=== PATIENT | female | born 1990 | race Caucasian/White ===

== ENCOUNTER → 2020-10-19 08:47 | Outpatient (CLI) | payer OTHER, SELFPAY ==
[2020-10-19] MEDS: COVID-19 VACC(MODERNA-1)/PF 100 MCG/0.5 ML VIAL IM (08:54)
== END ==
PROVIDERS: Visit Provider Internal Medicine
DX: Z23 Encounter for immunization (principal)
CPT/HCPCS: 0011A; 91301

== ENCOUNTER → 2020-11-15 08:49 | Outpatient (CLI) | payer OTHER, SELFPAY ==
[2020-11-15] MEDS: COVID-19 VACC #2, MRNA(MOD) 100 MCG/0.5 ML VIAL IM (08:52)
== END ==
PROVIDERS: Visit Provider Internal Medicine
DX: Z23 Encounter for immunization (principal)
CPT/HCPCS: 0012A; 91301

== ENCOUNTER → 2021-01-30 17:45 | Outpatient (CLI) | payer OTHER, SELFPAY ==
[2021-01-30 18:13] LABS: Add Manual Diff / Slide Review NO; Basophils Absolute Auto 100 /uL (0-100); Basophils Percent Auto 0.6 % (0-2); Eosinophils Absolute Auto 100 /uL (0-450); Eosinophils Percent Auto 0.7 % (2-4); Hematocrit 44.3 % (36-46); Lymphocytes Absolute Auto 2600 /uL (1100-4500); Lymphocytes Percent Auto 29.4 % (25-40); Mean Corpuscular Hemoglobin 30.2 PG (26-34); Monocytes Absolute Auto 500 /uL (0-900); Neutrophils Absolute Auto 5600 /uL (1500-7000); Neutrophils Percent Auto 63.3 % (50-75); Platelet Count 353 X10^3/uL (150-400); Red Blood Cell Count 4.97 X10^6/uL (4.0-5.2); White Blood Cell Count 8.9 X10^3/uL (4.5-11.0)
[2021-01-30 18:25] LABS: Alanine Aminotransferase 18 IU/L (<35); Albumin 4.2 g/dL (3.5-5.0); Albumin Globulin Ratio 1.6 (1.0-2.8); Alkaline Phosphatase 58 U/L (38-126); Aspartate Aminotransferase 25 IU/L (14-36); BUN Creatinine Ratio 23.8 (6-22); Bilirubin Total 0.3 mg/dL (0.2-1.3); Blood Urea Nitrogen 15 mg/dL (7-17); Calcium 9.9 mg/dL (8.4-10.2); Carbon Dioxide 22 mmol/L (22-32); Chloride 105 mmol/L (98-107); Cholesterol 176 mg/dL (140-199); Estimated Glomerular Filt Rate > 60.0 mL/min (>60); Globulin 2.7 g/dL (1.7-4.1); Glucose 91 mg/dL (70-100); HDL Cholesterol 46 mg/dL (40-60); HEMOLYSIS < 15 (0-50); LDL Cholesterol Calculated 116 mg/dL (<100); Potassium 4.2 mmol/L (3.4-5.1); Sodium 136 mmol/L (137-145); Total Protein 6.9 g/dL (6.3-8.2); Triglycerides 71 mg/dL (35-150)
[2021-01-30 19:42] LABS: Free T4, Direct Thyroxine 1.11 ng/dL (0.78-2.19)
[2021-01-30 19:56] LABS: Thyroid Stimulating Hormone 0.972 uIU/mL (0.47-4.68)
[2021-01-30 19:57] LABS: Creatinine Urine Random 90.8 mg/dL
[2021-01-30 20:40] LABS: Microalbumin Urine Random < 0.6 mg/dL (0-1.6)
== END ==
PROVIDERS: PCP Family Medicine; Referring Provider Family Medicine; Visit Provider Family Medicine
DX: E03.9 Hypothyroidism, unspecified (principal); E11.9 Type 2 diabetes mellitus without complications; Z13.220 Encounter for screening for lipoid disorders; Z13.228 Encounter for screening for other metabolic disorders; Z76.89 Persons encountering health services in other specified circumstances
CPT/HCPCS: 36415; 80053; 80061; 82043; 82570; 83036; 84439; 84443; 85025

== ENCOUNTER → 2021-03-16 16:25 | Outpatient (CLI) | payer OTHER, SELFPAY ==
[2021-03-16 18:07] LABS: Add Manual Diff / Slide Review NO; Basophils Absolute Auto 0 /uL (0-100); Basophils Percent Auto 0.4 % (0-2); Eosinophils Absolute Auto 0 /uL (0-450); Eosinophils Percent Auto 0.3 % (2-4); Hematocrit 42.7 % (36-46); Hemoglobin 14.6 g/dL (12.0-16.0); Lymphocytes Absolute Auto 2000 /uL (1100-4500); Lymphocytes Percent Auto 16.7 % (25-40); Mean Corpuscular HGB Conc 34.1 % (30-36); Mean Corpuscular Hemoglobin 30.4 PG (26-34); Monocytes Absolute Auto 600 /uL (0-900); Monocytes Percent Auto 4.9 % (3-14); Neutrophils Absolute Auto 9200 /uL (1500-7000); Neutrophils Percent Auto 77.7 % (50-75); Platelet Count 359 X10^3/uL (150-400); Red Cell Distribution Width 13.2 % (11.6-14.8); White Blood Cell Count 11.8 X10^3/uL (4.5-11.0)
[2021-03-16 18:13] LABS: Appearance Urine UA CLEAR; Bilirubin Urine UA NEGATIVE (NEGATIVE); Color Urine UA YELLOW; Glucose Urine UA NEGATIVE (Negative); Ketones Urine UA NEGATIVE (NEGATIVE); Leukocyte Esterase Urine UA NEGATIVE (NEGATIVE); Nitrite Urine UA NEGATIVE (Negative); Occult Blood Urine UA NEGATIVE (Negative); Protein Urine UA NEGATIVE (Negative); Specific Gravity Urine UA <=1.005 (1.000-1.035); Urobilinogen Urine UA 0.2 E.U./dL (0.2)
[2021-03-16 18:20] LABS: pH Urine UA 6.5 (4.5-8.0)
[2021-03-16 20:39] LABS: Urine Chlamydia NOT DETECTED; Urine N gonorrhoeae NOT DETECTED
[2021-03-17 04:05] LABS: Hepatitis B Surface Antigen NEGATIVE s/c (NEGATIVE); Rubella Antibody IgG 31.8 IU/mL (>15)
[2021-03-17 04:18] LABS: HIV 1 & 2 Ab/Ag 4th Gen Combo NEGATIVE (NEGATIVE); Hep C Virus Ab w/Reflex Quant NEGATIVE s/c (NEGATIVE)
[2021-03-17 13:48] LABS: RPR Screen Non Reactive (Non Reactive); Varicella IgG Antibody 819 index (Immune >165)
== END ==
PROVIDERS: PCP Family Medicine; Referring Provider Specialist; Visit Provider Specialist
DX: Z34.81 Encounter for supervision of other normal pregnancy, first trimester (principal); Z3A.08 8 weeks gestation of pregnancy
CPT/HCPCS: 36415; 80055; 81003; 86787; 86803; 86850; 86900; 86901; 87086; 87389; 87491; 87591

== ENCOUNTER 2021-05-01 17:14 | Emergency (ER) | payer OTHER, SELFPAY ==
[2021-05-01 18:04] VITALS: BP 141/93; PULSE 99; RESP 16; TEMP 37.1; O2SAT 97; BMI 34.4
--- NOTE | 2021-05-01 18:11 | DI.US.S_ITS ---
PROCEDURE: US OB LIMITED INDICATIONS: PELVIC PAIN AND CRAMPING OUTSIDE/PRIOR DATING DATA: First dating scan (date and location): May 01, 2021 . Estimated date of delivery (JUSTIN) from first dating scan: October 13, 2021 . TECHNIQUE: Real-time scanning was performed of the fetus, with image documentation and biometric measurements. Endovaginal scanning: Not performed COMPARISON: None. FINDINGS: General: A single living intrauterine gestation is present. Presentation: Breech. Placenta: Placental position is posterior , without previa. Amniotic fluid index: 13.1 cm, normal range is 5-24 cm. heart rate: 152 beats per minute. Maternal cervical canal: 3.8 cm long. Normal lower limit is 2.5 cm. Probable anterior uterine contraction. Right ovary not well seen. Likely resolving corpus luteal cyst on the left measuring up to 2.9 cm in size. biometrics: Biparietal diameter: 3.4 cm, correlating with 16 weeks and 3 days Head circumference: 12.7 cm, correlating with 16 weeks and 3 days Abdominal circumference: 11.3 cm, correlating with 17 weeks and 1 day. Femur length: 2.0 cm, correlating with 15 weeks and 6 days Estimated gestational age from initial scan: not applicable. Composite gestational age from present scan: 16 weeks and 3 days Estimated weight and percentile: 159 g. Percentile not calculated. Measurement variability for biometric dating: +/- 7 days from 14 weeks to 15 weeks 6 days gestation, +/- 10 days from 16 weeks to 21 weeks 6 days gestation, +/- 2 weeks from 22 weeks to 27 weeks 6 days gestation, +/- 3 weeks for 28 weeks gestation or later. weight reference: 4500 g or EFW >90/95% is considered macrosomia or large for gestational age. EFW <10% is small for gestational age. EFW 5% or less is considered intra-uterine growth restriction. Other: No evidence for perigestational hemorrhage. IMPRESSION: 1. Single living intrauterine gestation with estimated sonographic gestational age of approximately 16 weeks and 3 days. 2. Probable anterior uterine contraction. Follow-up recommended to document resolution. 3. Likely resolving left corpus luteal cyst measuring 2.9 cm in size. Dictated by: Prem Gayle M.D. on 05/01/2021 at 20:15 Approved by: Prem Gayle M.D. on 05/01/2021 at 20:24
[2021-05-01 18:34] LABS: Appearance Urine UA CLEAR; Bilirubin Urine UA NEGATIVE (NEGATIVE); Color Urine UA YELLOW; Glucose Urine UA NEGATIVE (Negative); Ketones Urine UA NEGATIVE (NEGATIVE); Leukocyte Esterase Urine UA NEGATIVE (NEGATIVE); Nitrite Urine UA NEGATIVE (Negative); Occult Blood Urine UA NEGATIVE (Negative); Protein Urine UA NEGATIVE (Negative); Specific Gravity Urine UA 1.015 (1.000-1.035)
[2021-05-01 18:41] LABS: pH Urine UA 6.5 (4.5-8.0)
[2021-05-01 18:45] LABS: Bacteria Urine Few (2-10); Calcium Oxalate Crystals Urine Few; Culture Indicated Urine Cult Not Indicated; RBC Urine 0-1/HPF (0-5/HPF); Squamous Epithelial Cell Urine 5-10 /HPF (0-5/HPF); WBC Urine 0-1/HPF (0-5/HPF)
--- NOTE | 2021-05-01 19:18 | ED_ITS ---
HPI - General Chief complaint: OB/Uterine Contractions Stated complaint: 16 WKS INTENSE PELVIC PAIN PRESSURE Time Seen by Provider: 05/01/21 19:17 History of Present Illness HPI Narrative: This is a female at 16 weeks who comes with complaint of pressure in her lower pelvis. Patient states feels similar to what she had later in her but she is also having pain. Patient states it has been going on for the past week but has become more intense and frequent and prolonged. Patient denies any fevers or chills. No nausea or vomiting. She denies any issues with bowel movements. She has had normal stools with no black or bloody stools. She has had normal urination with no dysuria, frequency or sense of urgency. She has had bilateral lower back pain as well. Patient notes may be slightly worse on the right. Patient states she is currently on m etformin for potential diabetes or gestational diabetes. She states this was started preemptively. Patient is also on levothyroxine for hypothyroidism. She states she has had uneventful pregnancies in the past. She had C-sections for her 3 prior deliveries. She follows with Dr. Sun for her care. She does note that she did have a kidney infection with her past . Related Data Home Medications Medication Instructions Recorded Confirmed levothyroxine 25 mcg tablet 25 mcg PO tab 01/30/21 04/13/21 metformin 750 mg tablet,extended mg PO 01/30/21 04/13/21 release 24 hr prenat.vits,nery,ggr-cwji-xedpb 1 tab PO DAILY 03/07/21 04/13/21 Previous Rx's Medication Instructions Recorded clindamycin phosphate 1 % lotion 1 applic TOPICAL BID #60 ml 01/30/21 (Cleocin T) Allergies Allergy/AdvReac Type Severity Reaction Status Date / Time No Known Drug Allergies Allergy Verified 03/07/21 14:08 Review of Systems Review of Systems ROS Unobtainable: All systems reviewed & are unremarkable except as noted in HPI and below Exam Narrative Exam Narrative: GENERAL: Alert and oriented x three, female in mild distress. HEENT: Head normocephalic, atraumatic, EOMI, pupils reactive, face symmetric, moist mucous membranes NECK: Supple, full range of motion CARDIOVASCULAR: Regular rate and rhythm without murmurs, rubs or gallops. RESPIRATORY: Breath sounds equal bilaterally, no wheezes rales or rhonchi. ABDOMEN: Soft, generalized lower abdominal tenderness. Normoactive bowel sounds all 4 quadrants. No guarding or rebound, rigidity, no mass, gravid. : Bilateral right greater than left CVA tenderness EXTREMITIES: Normal range of motion, no clubbing or edema. Neurovascularly intact NEUROLOGICAL: Cranial nerves II through XII grossly intact. Moving all ex tremities SKIN: Warm, dry, no petechiae, no rashes or lesions. Initial Vital Signs Initial Vital Signs: Vital Signs Temperature 98.7 F 05/01/21 18:04 Pulse Rate 99 H 05/01/21 18:04 Respiratory Rate 16 05/01/21 18:04 Blood Pressure 141/93 H 05/01/21 18:04 Pulse Oximetry 97 05/01/21 18:04 Course Orders Ordered: Discontinued Medications Acetaminophen (Acetaminophen 325 Mg Tablet) 975 mg PO NOW ONE Stop: 05/01/21 19:27 Last Admin: 05/01/21 19:31 Dose: 975 mg Documented by: KOBY Sodium Chloride (Normal Saline 0.9%) 1,000 mls @ 1,000 mls/hr IV BOLUS ONE Stop: 05/01/21 20:29 Last Infusion: 05/01/21 21:11 Dose: 0 mls/hr Documented by: Admin: 05/01/21 20:05 Dose: 1,000 mls/hr Documented by: KOBY Reevaluation(s) Reevaluation #1: Recheck, patient has had some improvement. Her pain is not as intense but is still present. She still continues to have pressure present. Patient blood pressure also improved here in the department is 123/76 on repeat. Labs show a mild leukocytosis, hemoglobin and platelets are appropriate, sodium is 135 with normal renal function and LFTs. Patients urine is negative for infection. Ultrasound shows single living intrauterine gestation consistent with dates, possible anterior uterine contraction and likely resolving left corpus luteal cyst measuring 2.9 cm. It is also noted the patient's cervical canal is 2.8 cm long with a normal lower limit of 2.5 cm. No signs of hemorrhage or chorionic bleed. And heartbeat is 152. Discussed with patient fall of her findings from this evening. She can continue with Tylenol was concurred to continue to hydrate and was given work. Patient and I discussed return precautions and to touch base with her provider, she has an appointment follow-up on 05/11 but may wish to have sooner follow-up with continued symptoms. Consultations Consultation #1: Dr. Roper, reviewed patient's ultrasound findings, examine labs. She states ultrasound is not definitive in terms of contractions. This is a possibility. Also discussed that other can be some scarring from her uterus. Vital Signs Vital signs: Vital Signs - 8 hr 05/01/21 22:33 Temperature 97.8 F Pulse Rate 91 H Respiratory Rate 18 Blood Pressure 123/76 Pulse Oximetry 99 MDM - OB/Uterine Contractions Lab Data Result diagrams: 05/01/21 20:14 05/01/21 20:14 Labs: Lab Results 05/01/21 05/01/21 05/01/21 Range/Units 18:10 20:14 20:14 WBC 13.0 H (4.5-11.0) X10^3/uL RBC 4.72 (4.0-5.2) X10^6/uL Hgb 14.4 (12.0-16.0) g/dL Hct 42.4 (36-46) % MCV 89.9 (80-100) fL MCH 30.4 (26-34) PG MCHC 33.9 (30-36) % RDW 13.5 (11.6-14.8) % Plt Count 309 (150-400) X10^3/uL Neut % (Auto) 76.7 H (50-75) % Lymph % (Auto) 16.7 L (25-40) % [place] % (Auto) 5.7 (3-14) % Eos % (Auto) 0.5 L (2-4) % Baso % (Auto) 0.4 (0-2) % Neut # (Auto) 9900 H (3570-2651) /uL Lymph # (Auto) 2200 (3628-0393) /uL [place] # (Auto) 700 (0-900) /uL Eos # (Auto) 100 (0-450) /uL Baso # (Auto) 0 (0-100) /uL Sodium 135 L (137-145) mmol/L Potassium 4.0 (3.4-5.1) mmol/L Chloride 106 (98-107) mmol/L Carbon Dioxide 23 (22-32) mmol/L BUN 11 (7-17) mg/dL Creatinine 0.47 L (0.52-1.04) mg/dL Estimated GFR > 60.0 (>60) mL/min BUN/Creatinine Ratio 23.4 H (6-22) Glucose 78 (70-100) mg/dL Calcium 8.6 (8.4-10.2) mg/dL Total Bilirubin 0.2 (0.2-1.3) mg/dL AST 19 (14-36) IU/L ALT 11 (<35) IU/L Alkaline Phosphatase 51 (38-126) U/L Total Protein 6.3 (6.3-8.2) g/dL Albumin 3.4 L (3.5-5.0) g/dL Globulin 2.9 (1.7-4.1) g/dL Albumin/Globulin Ratio 1.2 (1.0-2.8) Lipase 227 (23-300) U/L Urine Color Yellow Urine Appearance Clear Urine pH 6.5 (4.5-8.0) Ur Specific [place] 1.015 (1.000-1.035) Urine Protein Negative (Negative) Urine Glucose (UA) Negative (Negative) g/dL Urine Ketones Negative (NEGATIVE) Urine Occult Blood Negative (Negative) Urine Nitrate Negative (Negative) Urine Bilirubin Negative (NEGATIVE) Urine Urobilinogen 1.0 (0.2) E.U./dL Ur Leukocyte Esterase Negative (NEGATIVE) Urine RBC 0-1/hpf (0-5/HPF) Urine WBC 0-1/hpf (0-5/HPF) Ur Squamous Epith Cells 5-10 /hpf H (0-5/HPF) Calcium Oxalate Crystal Few H Urine Bacteria Few (2-10) H (None) Ur Culture Indicated? Cult not indicated Imaging Data US - OB: Radiologist's Impression: [address] [id number] ReportSigned Patient: Cr Rapp LMR#: [id number]: [id number]:[id number]/Sex: 30 / FDate of Service: 05/01/21Loc: EDAccession Number: [id number] Procedure: US OB limited Ordering Provider: Rosa Butterfield D.O. PROCEDURE: US OB LIMITED INDICATIONS: PELVIC PAIN AND CRAMPING OUTSIDE/PRIOR DATING DATA: First dating scan (date and location): May 01, 2021 . Estimated date of delivery (JUSTIN) from first dating scan: October 13, 2021 . TECHNIQUE: Real-time scanning was performed of the fetus, with image documentation and biometric measurements. Endovaginal scanning: Not performed COMPARISON: None. FINDINGS: General: A single living intrauterine gestation is present. Presentation: Breech. Placenta: Placental position is posterior , without previa. Amniotic fluid index: 13.1 cm, normal range is 5-24 cm. heart rate: 152 beats per minute. Maternal cervical canal: 3.8 cm long. Normal lower limit is 2.5 cm. Probable anterior uterine contraction. Right ovary not well seen. Likely resolving corpus luteal cyst on the left measuring up to 2.9 cm in size. biometrics: Biparietal diameter: 3.4 cm, correlating with 16 weeks and 3 days Head circumference: 12.7 cm, correlating with 16 weeks and 3 days Abdominal circumference: 11.3 cm, correlating with 17 weeks and 1 day. Femur length: 2.0 cm, correlating with 15 weeks and 6 days Estimated gestational age from initial scan: not applicable. Composite gestational age from present scan: 16 weeks and 3 days Estimated weight and percentile: 159 g. Percentile not calculated. Measurement variability for biometric dating: +/- 7 days from 14 weeks to 15 weeks 6 days gestation, +/- 10 days from 16 weeks to 21 weeks 6 days gestation, +/- 2 weeks from 22 weeks to 27 weeks 6 days gestation, +/- 3 weeks for 28 weeks gestation or later. weight reference: 4500 g or EFW >90/95% is considered macrosomia or large for gestational age. EFW <10% is small for gestational age. EFW 5% or less is considered intra-uterine growth restriction. Other: No evidence for perigestational hemorrhage. IMPRESSION: 1. Single living intrauterine gestation with estimated sonographic gestational age of approximately 16 weeks and 3 days. 2. Probable anterior uterine contraction. Follow-up recommended to document re solution. 3. Likely resolving left corpus luteal cyst measuring 2.9 cm in size. Dictated by: Prem Gayle M.D. on 05/01/2021 at 20:15 Approved by: Prem Gayle M.D. on 05/01/2021 at 20:24 MDM Narrative Medical decision making narrative: 30-year-old female with pelvic pain present. Labs are reassuring, patient's pelvic ultrasound shows possible contraction and patient's descriptions of her symptoms actually sound somewhat consistent with this. Patient's cervical canal is 3.8 cm long. She did have some improvement w ith Tylenol and fluids but not resolution. Patient's urine is not suspicious for infection at this time. Patient was encouraged to return if worsening symptoms for additional evaluation. On abdominal exam she does not appear to have acute abdomen and exam do not seem consistent with an appendicitis or serious intrabdominal infection. Discharge Plan Departure Patient Disposition: Home Clinical Impression: Pelvic pain affecting Instructions: DI for Abdominal Pain -- Early Activity Restrictions/Additional Instructions: Follow up with your pump tester this week. Call tomorrow for an appointment and discuss options. You may continue with Tylenol up to a 1000 mg every 8 hours to see if this helps your symptoms. Continue to hydrate. Return for worsening symptoms, fevers greater 100.4 F, new chest pain or shortness of breath, persistent vomiting, or bloody stools, difficulty with urination, painful, frequent or other urinary symptoms, vaginal bleeding or fluid leakage or other new or concerning symptoms. Prescriptions: No Action metformin 750 mg tablet extended release 24 hr PO RF: 0 levothyroxine 25 mcg tablet 25 mcg PO RF: 0 clindamycin phosphate [Cleocin T] 1 % lotion 1 applic topical BID Qty: 60 RF: 1 prenat.vits,nery,aau-mtrm-fcgnu Tablet 1 tab PO DAILY RF: 0 Referrals: eKlli Roper MD [Physician] - Mendel Urbina DO [Primary Care Provider] - Stand Alone Forms: Work Release Note
[2021-05-01] MEDS: ACETAMINOPHEN 325 MG TABLET 975 MG PO (19:31)
[2021-05-01 19:38] VITALS: BP 123/74; PULSE 91; RESP 18; TEMP 36.5; O2SAT 97
[2021-05-01] MEDS: SODIUM CHLORIDE 0.9% 1,000 ML 1000 ML IV (20:05)
[2021-05-01 20:20] LABS: Add Manual Diff / Slide Review NO; Basophils Absolute Auto 0 /uL (0-100); Basophils Percent Auto 0.4 % (0-2); Eosinophils Absolute Auto 100 /uL (0-450); Eosinophils Percent Auto 0.5 % (2-4); Hematocrit 42.4 % (36-46); Hemoglobin 14.4 g/dL (12.0-16.0); Lymphocytes Absolute Auto 2200 /uL (1100-4500); Lymphocytes Percent Auto 16.7 % (25-40); Mean Corpuscular HGB Conc 33.9 % (30-36); Mean Corpuscular Hemoglobin 30.4 PG (26-34); Mean Corpuscular Volume 89.9 fL (80-100); Monocytes Absolute Auto 700 /uL (0-900); Monocytes Percent Auto 5.7 % (3-14); Neutrophils Absolute Auto 9900 /uL (1500-7000); Neutrophils Percent Auto 76.7 % (50-75); Platelet Count 309 X10^3/uL (150-400); Red Blood Cell Count 4.72 X10^6/uL (4.0-5.2); Red Cell Distribution Width 13.5 % (11.6-14.8)
--- NOTE | 2021-05-01 20:36 | PC.NURSE ---
Patient endorses vaginal pressure/pain since Saturday. Denies having problems like this with previous pregnancies.
[2021-05-01 20:38] LABS: Alanine Aminotransferase 11 IU/L (<35); Albumin 3.4 g/dL (3.5-5.0); Albumin Globulin Ratio 1.2 (1.0-2.8); Alkaline Phosphatase 51 U/L (38-126); Aspartate Aminotransferase 19 IU/L (14-36); BUN Creatinine Ratio 23.4 (6-22); Bilirubin Total 0.2 mg/dL (0.2-1.3); Blood Urea Nitrogen 11 mg/dL (7-17); Calcium 8.6 mg/dL (8.4-10.2); Carbon Dioxide 23 mmol/L (22-32); Chloride 106 mmol/L (98-107); Estimated Glomerular Filt Rate > 60.0 mL/min (>60); Globulin 2.9 g/dL (1.7-4.1); Glucose 78 mg/dL (70-100); HEMOLYSIS < 15 (0-50); Lipase 227 U/L (23-300); Sodium 135 mmol/L (137-145); Total Protein 6.3 g/dL (6.3-8.2)
[2021-05-01 22:33] VITALS: BP 123/76; PULSE 91; RESP 18; TEMP 36.6; O2SAT 99
== END 2021-05-01 22:35 | disposition home or self-care (01) ==
PROVIDERS: Emergency Provider Emergency Medicine; PCP Family Medicine
DX: O26.892 Other specified pregnancy related conditions, second trimester (principal); R10.2 Pelvic and perineal pain; Z3A.14 14 weeks gestation of pregnancy
CPT/HCPCS: 36415; 76815; 80053; 81001; 83690; 85025; 96360; 99284

== ENCOUNTER → 2021-05-11 17:15 | Outpatient (CLI) | payer OTHER, SELFPAY ==
[2021-05-16 20:58] LABS: AFP, Serum 40.2 ng/mL (.); Calc Gestational Age Ultrasound (.); Estriol, Free 1.23 ng/mL (.); Inhibin A, Dimeric 162.28 pg/mL (.); Inhibin A, MoM 1.21 (.); Maternal Ethnicity Caucasian (.); Maternal Weight 193 lbs (.); Number of Fetuses No (.); OSBR Risk 1 IN 8933 (.); Results Report (.); Test Results *Screen Negative* (.); hCG, MoM 2.15 (.); hCG, Serum 53189 mIU/mL (.)
== END ==
PROVIDERS: PCP Family Medicine; Referring Provider Specialist; Visit Provider Specialist
DX: Z34.82 Encounter for supervision of other normal pregnancy, second trimester (principal); Z3A.17 17 weeks gestation of pregnancy
CPT/HCPCS: 36415; 82105; 82677; 84702; 86336

== ENCOUNTER → 2021-05-29 14:03 | Outpatient (CLI) | payer OTHER, SELFPAY ==
--- NOTE | 2021-05-29 14:04 | DI.US.S_ITS ---
PROCEDURE: US OB >= 14 WEEKS FETUS INDICATIONS: ANATOMY OUTSIDE/PRIOR DATING DATA: Last menstrual period (LMP): Unknown . LMP-based estimated date of delivery (JUSTIN): Not applicable . First dating scan (date and location): 05/01/2021 . Estimated date of delivery (JUSTIN) from first dating scan: 10/13/2021 . TECHNIQUE: Real-time scanning was performed of the fetus, with image documentation and biometric measurements. Endovaginal scanning: Not performed COMPARISON: None. FINDINGS: General: A single living intrauterine gestation is present. Placenta: Placental position is posterior , without previa. Lower placental edge 2 cm or less from internal cervical os qualifies as low lying placenta. Amniotic fluid index: 12.9 cm, normal range is 5-24 cm. heart rate: 155 beats per minute. Maternal cervical canal: 3.9 cm long. Normal lower limit is 2.5 cm. Report any funneling of internal cervical os: % of canal length, shape (U or V), width or any U-shaped funneling. biometrics: Biparietal diameter: 49 mm; 20 weeks 5 days Head circumference: 186 mm; 20 weeks 6 days Abdominal circumference: 158 mm; 20 weeks 6 days Femur length: 30 mm; 19 weeks 3 days Estimated gestational age from initial scan: 20 weeks 3 days Composite gestational age from present scan: 20 weeks 3 days Estimated weight and percentile: 344 g, which is at the 37th percentile for gestational age Measurement variability for biometric dating: +/- 7 days from 14 weeks to 15 weeks 6 days gestation, +/- 10 days from 16 weeks to 21 weeks 6 days gestation, +/- 2 weeks from 22 weeks to 27 weeks 6 days gestation, +/- 3 weeks for 28 weeks gestation or later. weight reference: 4500 g or EFW >90/95% is considered macrosomia or large for gestational age. EFW <10% is small for gestational age. EFW 5% or less is considered intra-uterine growth restriction. Anatomic survey: Neuro: Ventricles are non-dilated at less than 10 mm. Cisterna magna is normal at 3-11 mm. Cerebellum is normal in size and morphology. Nuchal skin fold: Normal at less than 6 mm between 14-21 weeks gestational age. Face: Nose and lips, facial profile are normal. Spine: No evidence for spina bifida. Heart: Not well seen Diaphragm: Not well seen Stomach: Left-sided stomach is present. Kidneys: No hydronephrosis. Normal is less than 5 mm in 2nd trimester, less than 7 mm in 3rd trimester. Cord: 3-vessel cord has orthotopic insertion. Bladder: Normal in size. Extremities: All 4 extremities identified. IMPRESSION: 1. Single living intrauterine gestation. 2. Limited evaluation of the heart and diaphragm. 3. Appropriate interval growth. Dictated by: Monalisa Underwood M.D. on 05/30/2021 at 15:20 Approved by: Monalisa Underwood M.D. on 05/30/2021 at 15:23
== END ==
PROVIDERS: PCP Family Medicine; Referring Provider Specialist; Visit Provider Specialist
DX: Z34.82 Encounter for supervision of other normal pregnancy, second trimester (principal); Z3A.20 20 weeks gestation of pregnancy
CPT/HCPCS: 76811

== ENCOUNTER → 2021-06-20 12:05 | Outpatient (CLI) | payer OTHER, SELFPAY ==
--- NOTE | 2021-06-20 12:06 | DI.US.S_ITS ---
PROCEDURE: US OB FOLLOW UP INDICATIONS: FOLLOW UP FROM [facility] OUTSIDE/PRIOR DATING DATA: Last menstrual period (LMP): Unknown . LMP-based estimated date of delivery (JUSTIN): Unknown . First dating scan (date and location): 05/01/2021 . Estimated date of delivery (JUSTIN) from first dating scan: 10/13/2021 . TECHNIQUE: Real-time scanning was performed of the fetus, with image documentation. COMPARISON: Merged with [facility], OB >= 14 WEEKS FETUS, 05/29/2021, 14:14. Merged with [facility], OB LIMITED, 05/01/2021, 18:55. [facility], OB <= 14 WEEKS FETUS, 04/13/2021, 16:32. FINDINGS: A single living intrauterine gestation is present. Presentation: Vertex Placenta: Placental position is posterior without previa. Amniotic fluid index: 15.1 cm, normal range is 5-24 cm. heart rate: 139 beats per minute. Maternal cervical canal: 3.9 cm long. Normal lower limit is 2.5 cm. Estimated gestational age from initial scan: 23 weeks 4 days Miscellaneous: Heart and diaphragm appear within normal limits. . IMPRESSION: 1. Single live intrauterine . 2. Heart and diaphragm are within normal limits. Dictated by: Cee Meier M.D. on 06/20/2021 at 17:55 Approved by: Cee Meier M.D. on 06/20/2021 at 17:56
== END ==
PROVIDERS: PCP Family Medicine; Referring Provider Specialist; Visit Provider Specialist
DX: Z36.2 Encounter for other antenatal screening follow-up (principal); Z3A.23 23 weeks gestation of pregnancy
CPT/HCPCS: 76816

== ENCOUNTER → 2021-07-14 09:30 | Outpatient (CLI) | payer OTHER, SELFPAY ==
[2021-07-14 11:49] LABS: Hematocrit 38.7 % (36-46)
[2021-07-14 11:50] LABS: GTT (PREG) 1 Hour PP 50gm Dose 152 mg/dL (76-139)
== END ==
PROVIDERS: PCP Family Medicine; Referring Provider Specialist; Visit Provider Specialist
DX: Z34.82 Encounter for supervision of other normal pregnancy, second trimester (principal); Z3A.25 25 weeks gestation of pregnancy
CPT/HCPCS: 36415; 82950; 85014; 85018

== ENCOUNTER → 2021-07-24 08:56 | Outpatient (CLI) | payer OTHER, SELFPAY ==
[2021-07-24 09:42] LABS: Glucose Fasting Gestational 86 mg/dL (76-95)
[2021-07-24 11:18] LABS: Glucose 1 Hour Gest 181 mg/dL (76-180)
[2021-07-24 12:21] LABS: Glucose Tol Interp,Gestational INTERPRETATION
[2021-07-24 13:08] LABS: Glucose 3 Hour Gest 152 mg/dL (76-140)
[2021-07-24 18:19] LABS: Glucose 2 Hour Gest 158 mg/dL (76-155)
== END ==
PROVIDERS: PCP Family Medicine; Referring Provider Specialist; Visit Provider Specialist
DX: Z34.82 Encounter for supervision of other normal pregnancy, second trimester (principal); R73.09 Other abnormal glucose; Z3A.28 28 weeks gestation of pregnancy
CPT/HCPCS: 36415; 82951; 82952

== ENCOUNTER 2021-09-01 13:00 | Outpatient (RCR) | payer OTHER, SELFPAY ==
--- NOTE | 2021-06-26 15:44 | PT.OIE ---
Current Diagnoses Other specified related conditions, unspecified trimester (06/26/21) Pelvic and perineal pain (06/26/21) 18 weeks gestation of (06/26/21) Past Medical History (Last Updated 03/07/21 @ 15:39 by Misty Velazquez RN) Abnormal Pap smear of cervix (~05/2019) Acne rosacea (~2019) Borderline hypertension (~2018) Diabetes mellitus (~2018) History of being hospitalized (~12/2007) History of primary section (~04/16/07) Hypothyroidism (~2018) Irregular menstrual cycle (~2015) Ovarian cyst (~2018) PCOS (polycystic ovarian syndrome) Pre-diabetes PTSD (post-traumatic stress disorder) SAB (spontaneous ) (~01/2005) Status post repeat low transverse section (~03/31/08) Status post repeat low transverse section (~08/07/13) Past Surgical History (This Medical Record has been edited. Action required.) History of primary section (~04/16/07) Status post repeat low transverse section (~03/31/08) Status post repeat low transverse section (~08/07/13) Visit Care Team Role Provider Type Mendel Urbina DO Primary Care Provider Physician Specialty: Family Practice Address: [address] [place] [address] Email: [email or web address] Sun MD Attending Provider Physician Referring Provider Specialty: CORRECTIVE THERAPY AIDE Address: [address] [place] [address], [address] Email: [email or web address] Initial Evaluation PT-OP-A Visit Information Start: 06/26/21 08:34 Freq: Status: Active Protocol: Document 06/26/21 13:45 AMB (Rec: 06/27/21 11:01 AMB [email or web address]) Out-Patient Physical Therapy Visit Information Visit Information Visit Type Initial Evaluation Visit Start Time 13:45 Visit Stop Time 14:30 Total Visit Minutes 45 Visit Number 1 PT-OP-B Current Condition Start: 06/26/21 08:34 Freq: Status: Active Protocol: Document 06/26/21 13:45 AMB (Rec: 06/27/21 12:01 AMB [email or web address]) Current Condition History of Current Condition Onset Date a few months ago Current Complaints bilateral sciatica, pubic symphysis pain History of Current Condition This is Cr's 4th . 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 She is having pain with walking, lifting, really any activity. She tried a band and didn't notice a lot of difference. She has difficulty with lying on her sides, but can't lie on her back and does have pain rolling over. The left seems to be worse. Sitting increases sciatica pain. Pubic symphysis pain seems to be better since going on light duty, but sciatica is not and is staying the same. Due October 14. Prior Functional Status Baseline Function- ADL's Independent Baseline Function- Mobility Independent Current Functional Impairments (Reported) Functional Limitations- ADL's Light duty at work Personal Factors Other Personal Factors That May Effect , hx multiple C- Therapy/Recovery section PT-OP-C Subjective Start: 06/26/21 08:34 Freq: Status: Active Protocol: Document 06/26/21 13:45 AMB (Rec: 06/27/21 13:44 AMB [email or web address]) Patient Questionnaires Pelvic Pain and Urgency/Frequency Patient Symptom Scale Pelvic Pain Score 6 OP-PT Pain Assessment Comments Pain Comments Varies between 5-8, low back and posterior hips down to about mid calf PT-OP-F Manual Assessment Start: 06/26/21 08:34 Freq: Status: Active Protocol: Document 06/26/21 13:45 AMB (Rec: 06/27/21 13:44 AMB [email or web address]) Manual Assessments Other Manual Assessments Other Manual Assessments Significant tenderness over gluteal muscle L>R, tender to even light touch. Less tender at lumbar spine. PT-OP-J Posture/Palpation/Skin Start: 06/26/21 08:34 Freq: Status: Active Protocol: Document 06/26/21 13:45 AMB (Rec: 06/27/21 13:44 AMB [email or web address]) Posture Evaluation Comments Posture Comments Increased lumbar lordosis. PT-OP-K Range of Motion Start: 06/26/21 08:34 Freq: Status: Active Protocol: Document 06/26/21 13:45 AMB (Rec: 06/27/21 13:44 AMB [email or web address]) Lumbar Spine Range of Motion Lumbar Spine Active Degrees Testing Position Standing Flexion 20 Extension 5 Lateral Flexion Left 20 Lateral Flexion Right 20 ROM Limitations Pain PT-OP-M Strength Start: 06/26/21 08:34 Freq: Status: Active Protocol: Document 06/26/21 13:45 AMB (Rec: 06/27/21 13:44 AMB [email or web address]) Hip Strength Hip Manual Muscle Testing Left Flexion (L2) 4+ Good+ Extension (S1) 4 Good Abduction 4 Good Right Flexion (L2) 4+ Good+ Extension (S1) 4 Good Abduction 4 Good Ankle/Foot Strength Ankle and Foot Manual Muscle Testing Right Dorsiflexion (L4) 5 Normal Plantarflexion (S1) 5 Normal Left Dorsiflexion (L4) 4 Good Plantarflexion (S1) 4- Good- PT-OP-Q Treatments Start: 06/26/21 08:34 Freq: Status: Active Protocol: Document 06/26/21 13:45 AMB (Rec: 06/27/21 13:44 AMB [email or web address]) Therapeutic Exercises Sitting Exercises 1 Sitting Exercise Name seated sciatic glide Reps/Minutes 3 Other Exercises 1 Other Exercise Name quadruped TA Reps/Minutes 10 PT-OP-T Assessment and Plan Start: 06/26/21 08:34 Freq: Status: Active Protocol: Document 06/26/21 13:45 AMB (Rec: 06/27/21 13:44 AMB [email or web address]) Physical Therapy Assessment Rehab Potential Rehabilitation Potential Fair Evaluation Complexity Number of Personal Factors/Comorbidities 1-2 Number of Body Systems Impaired 4 or More Clinical Presentation at Evaluation Evolving Impairments Impairments Pain,Posture,ROM,Strength Goals Three Impairment mobility Short Term Goal (STG) Kjrstie will roll over in bed with 5/10 pain or less. STG Duration 4 weeks Mcfp Goal (LTG) Kjrstie will be independent and consistent with a HEP to help stablize her core and pelvis. LTG Duration 8 weeks Two Impairment pain Short Term Goal (STG) Kjrstie will lift 15 pounds from floor to waist height with good body mechanics and 5 /10 pain or less. STG Duration 4 weeks Alteration Hand Goal (LTG) Kjrstie will walk for 30 minutes with 5/10 pain or less . One Impairment ROM Short Term Goal (STG) Kjrstie will improve her lumbar flexion AROM to 30 degrees. STG Duration 4 weeks Assessment Summary Assessment Cr attends physical therapy with significant L>R hip pain that radiates into her calves and left sided ankle weakness. She will benefit from core stabilization, body mechanics training. We will need to be very aware of her positioning, as lying supine and sitting are not well tolerated due to pain. Pubic symphysis pain is present but not the patient's main concern at this time. Given her progressing prengnacy and active job her potential is fair. Physical Therapy Plan Frequency and Duration Frequency of Treatment 2x/Week Duration of Treatment 8 weeks Plan of Care Start Date 06/26/21 Plan of Care End Date 08/21/21 Therapeutic Interventions Therapeutic Interventions Gait Training,Home Exercise Program,Joint Mobilizations, Manual Therapy,Neuromuscular Re-education,Self-Care/Home Management,Soft Tissue Mobilization,Therapeutic Activities,Therapeutic Exercises Modalities Cold Pack/Ice Massage,Hot Packs Next Visit Focus/Plan Next Note Type Treatment Note Next Visit Plan HEP: core stabilization in quadruped or on ball. Manual therapy with pillow.
--- NOTE | 2021-06-26 15:46 | PT.OPPOC ---
Physical, Occupational & Speech Therapy At [facility] Current Diagnoses Other specified related conditions, unspecified trimester (06/26/21) Pelvic and perineal pain (06/26/21) 18 weeks gestation of (06/26/21) Visit Care Team Role Provider Type Mendel Urbina DO Primary Care Provider Physician Specialty: Family Practice Address: [address] [place] [address], [address] Email: [email or web address] Sue Sun MD Attending Provider Physician Referring Provider Specialty: TURPENTINE DISTILLER Address: [address] [place] [address], [address] Email: [email or web address] Plan Of Care PT-OP-T Assessment and Plan Start: 06/26/21 08:34 Freq: Status: Active Protocol: Document 06/26/21 13:45 AMB (Rec: 06/27/21 13:44 AMB [email or web address]) Physical Therapy Assessment Rehab Potential Rehabilitation Potential Fair Evaluation Complexity Number of Personal Factors/Comorbidities 1-2 Number of Body Systems Impaired 4 or More Clinical Presentation at Evaluation Evolving Impairments Impairments Pain,Posture,ROM,Strength Goals Three Impairment mobility Short Term Goal (STG) Cr will roll over in bed with 5/10 pain or less. STG Duration 4 weeks Artificial Inseminator Goal (LTG) Cr will be independent and consistent with a HEP to help stablize her core and pelvis. LTG Duration 8 weeks Two Impairment pain Short Term Goal (STG) Cr will lift 15 pounds from floor to waist height with good body mechanics and 5 /10 pain or less. STG Duration 4 weeks Detention Goal (LTG) Cr will walk for 30 minutes with 5/10 pain or less . One Impairment ROM Short Term Goal (STG) Cr will improve her lumbar flexion AROM to 30 degrees. STG Duration 4 weeks Assessment Summary Assessment Cr attends physical therapy with significant L>R hip pain that radiates into her calves and left sided ankle weakness. She will benefit from core stabilization, body mechanics training. We will need to be very aware of her positioning, as lying supine and sitting are not well tolerated due to pain. Pubic symphysis pain is present but not the patient's main concern at this time. Given her progressing prengnacy and active job her potential is fair. Physical Therapy Plan Frequency and Duration Frequency of Treatment 2x/Week Duration of Treatment 8 weeks Plan of Care Start Date 06/26/21 Plan of Care End Date 08/21/21 Therapeutic Interventions Therapeutic Interventions Gait Training,Home Exercise Program,Joint Mobilizations, Manual Therapy,Neuromuscular Re-education,Self-Care/Home Management,Soft Tissue Mobilization,Therapeutic Activities,Therapeutic Exercises Modalities Cold Pack/Ice Massage,Hot Packs Next Visit Focus/Plan Next Note Type Treatment Note Next Visit Plan HEP: core stabilization in quadruped or on ball. Manual therapy with pillow. Plan of Care Dates Plan of Care Start Date 06/26/21 Plan of Care End Date 08/21/21 Electronically Signed by: Gisel Bates, PT 06/27/21 [id number] Please Sign and Return: I have reviewed this Plan of Care and certify that the skilled therapy services above are required to meet the patient?s needs. Physician Signature Date Printed Name and Credentials Clinical Instructor Signature Printed Name and Credentials
--- NOTE | 2021-07-20 15:50 | PT.OTN ---
Current Diagnoses Other specified related conditions, unspecified trimester (07/20/21) Pelvic and perineal pain (07/20/21) 18 weeks gestation of (07/20/21) Physical Therapy Treatment Note PT-OP-A Visit Information Start: 06/26/21 08:34 Freq: Status: Active Protocol: Document 07/20/21 13:45 AMB (Rec: 07/20/21 15:49 AMB [email or web address]) Out-Patient Physical Therapy Visit Information Visit Information Visit Type Treatment Note Visit Start Time 13:45 Visit Stop Time 14:30 Total Visit Minutes 45 Visit Number 2 PT-OP-B Current Condition Start: 06/26/21 08:34 Freq: Status: Active Protocol: Document 06/26/21 13:45 AMB (Rec: 06/27/21 12:01 AMB [email or web address]) Current Condition History of Current Condition Onset Date a few months ago Current Complaints bilateral sciatica, pubic symphysis pain History of Current Condition This is Cr's 4th . 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 She is having pain with walking, lifting, really any activity. She tried a band and didn't notice a lot of difference. She has difficulty with lying on her sides, but can't lie on her back and does have pain rolling over. The left seems to be worse. Sitting increases sciatica pain. Pubic symphysis pain seems to be better since going on light duty, but sciatica is not and is staying the same. Due October 14. Prior Functional Status Baseline Function- ADL's Independent Baseline Function- Mobility Independent Current Functional Impairments (Reported) Functional Limitations- ADL's Light duty at work Personal Factors Other Personal Factors That May Effect , hx multiple C- Therapy/Recovery section PT-OP-C Subjective Start: 06/26/21 08:34 Freq: Status: Active Protocol: Document 07/20/21 13:45 AMB (Rec: 07/20/21 15:49 AMB [email or web address]) OP-PT Subjective Patient Comments Patient Comments Cr states L sciatica is still pretty bad. PUbic symphysis pain isn't too bad. PT-OP-F Manual Assessment Start: 06/26/21 08:34 Freq: Status: Active Protocol: Document 06/26/21 13:45 AMB (Rec: 06/27/21 13:44 AMB [email or web address]) Manual Assessments Other Manual Assessments Other Manual Assessments Significant tenderness over gluteal muscle L>R, tender to even light touch. Less tender at lumbar spine. PT-OP-J Posture/Palpation/Skin Start: 06/26/21 08:34 Freq: Status: Active Protocol: Document 06/26/21 13:45 AMB (Rec: 06/27/21 13:44 AMB [email or web address]) Posture Evaluation Comments Posture Comments Increased lumbar lordosis. PT-OP-K Range of Motion Start: 06/26/21 08:34 Freq: Status: Active Protocol: Document 06/26/21 13:45 AMB (Rec: 06/27/21 13:44 AMB [email or web address]) Lumbar Spine Range of Motion Lumbar Spine Active Degrees Testing Position Standing Flexion 20 Extension 5 Lateral Flexion Left 20 Lateral Flexion Right 20 ROM Limitations Pain PT-OP-M Strength Start: 06/26/21 08:34 Freq: Status: Active Protocol: Document 06/26/21 13:45 AMB (Rec: 06/27/21 13:44 AMB [email or web address]) Hip Strength Hip Manual Muscle Testing Left Flexion (L2) 4+ Good+ Extension (S1) 4 Good Abduction 4 Good Right Flexion (L2) 4+ Good+ Extension (S1) 4 Good Abduction 4 Good Ankle/Foot Strength Ankle and Foot Manual Muscle Testing Right Dorsiflexion (L4) 5 Normal Plantarflexion (S1) 5 Normal Left Dorsiflexion (L4) 4 Good Plantarflexion (S1) 4- Good- PT-OP-Q Treatments Start: 06/26/21 08:34 Freq: Status: Active Protocol: Document 07/20/21 13:45 AMB (Rec: 07/20/21 15:49 AMB [email or web address]) Therapeutic Exercises Standing Exercises 1 Standing Exercise Name postural alignment Comments encourage posterior pelvic tilt, decrease lumbar lordosis Other Exercises 3 Other Exercise Name lumbar sidebend in quadruped Reps/Minutes 10 2 Other Exercise Name cat/cow Reps/Minutes 10 Comments avoiding lumbar extension to neutral only 1 Other Exercise Name quadruped TA Reps/Minutes 10 Manual Therapy Treatment Soft Tissue Mobilization 1 Body Location very light over L gluteal Mobilization Type Myofascial Release Intensity/Depth Superficial Body Position Prone Comments on pillow Joint Mobilizations 1 Joint lumbar spine Direction PA Grade I Body Position Prone Reps/Duration 5 Comments on pillow Taping 1 Body Location l/s junction Treatment Focus stabilization Type of Tape Kinesio Tape Comments star for stabilization PT-OP-R Modalities Start: 07/20/21 15:49 Freq: Status: Active Protocol: Document 07/20/21 13:45 AMB (Rec: 07/20/21 15:50 AMB [email or web address]) Electric Stimulation Electric Stimulation Interferential Current (IFC) Body Location L gluteals Duration (Minutes) 8 Comments prone on pillow PT-OP-T Assessment and Plan Start: 06/26/21 08:34 Freq: Status: Active Protocol: Document 07/20/21 13:45 AMB (Rec: 07/20/21 15:49 AMB [email or web address]) Physical Therapy Assessment Goals Three Impairment mobility Short Term Goal (STG) Cr will roll over in bed with 5/10 pain or less. STG Duration 4 weeks Coffee Roaster Goal (LTG) Cr will be independent and consistent with a HEP to help stablize her core and pelvis. LTG Duration 8 weeks Two Impairment pain Short Term Goal (STG) Cr will lift 15 pounds from floor to waist height with good body mechanics and 5 /10 pain or less. STG Duration 4 weeks Snf Goal (LTG) Cr will walk for 30 minutes with 5/10 pain or less . One Impairment ROM Short Term Goal (STG) Cr will improve her lumbar flexion AROM to 30 degrees. STG Duration 4 weeks Assessment Summary Assessment Cr felt a bit better after being on pillow. Very tender to manual therapy, but may have done well with taping, will need to re-evaluate. Physical Therapy Plan Next Visit Focus/Plan Next Note Type Treatment Note Next Visit Plan HEP: core stabilization in quadruped or on ball. Manual therapy with pillow, follow up on kinesiotape.
--- NOTE | 2021-07-28 16:00 | PT.OTN ---
Current Diagnoses Other specified related conditions, unspecified trimester (07/28/21) Pelvic and perineal pain (07/28/21) 18 weeks gestation of (07/28/21) Physical Therapy Treatment Note PT-OP-A Visit Information Start: 06/26/21 08:34 Freq: Status: Active Protocol: Document 07/28/21 14:30 AMB (Rec: 07/28/21 16:00 AMB [email or web address]) Out-Patient Physical Therapy Visit Information Visit Information Visit Type Treatment Note Visit Start Time 14:30 Visit Stop Time 15:15 Total Visit Minutes 45 Visit Number 3 PT-OP-B Current Condition Start: 06/26/21 08:34 Freq: Status: Active Protocol: Document 06/26/21 13:45 AMB (Rec: 06/27/21 12:01 AMB [email or web address]) Current Condition History of Current Condition Onset Date a few months ago Current Complaints bilateral sciatica, pubic symphysis pain History of Current Condition This is Cr's 4th . 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 She is having pain with walking, lifting, really any activity. She tried a band and didn't notice a lot of difference. She has difficulty with lying on her sides, but can't lie on her back and does have pain rolling over. The left seems to be worse. Sitting increases sciatica pain. Pubic symphysis pain seems to be better since going on light duty, but sciatica is not and is staying the same. Due October 14. Prior Functional Status Baseline Function- ADL's Independent Baseline Function- Mobility Independent Current Functional Impairments (Reported) Functional Limitations- ADL's Light duty at work Personal Factors Other Personal Factors That May Effect , hx multiple C- Therapy/Recovery section PT-OP-C Subjective Start: 06/26/21 08:34 Freq: Status: Active Protocol: Document 07/28/21 14:30 AMB (Rec: 07/28/21 16:00 AMB [email or web address]) OP-PT Subjective Patient Comments Patient Comments Bilateral lateral leg pain is bad this week, really bad to roll over in bed. PT-OP-F Manual Assessment Start: 06/26/21 08:34 Freq: Status: Active Protocol: Document 06/26/21 13:45 AMB (Rec: 06/27/21 13:44 AMB [email or web address]) Manual Assessments Other Manual Assessments Other Manual Assessments Significant tenderness over gluteal muscle L>R, tender to even light touch. Less tender at lumbar spine. PT-OP-J Posture/Palpation/Skin Start: 06/26/21 08:34 Freq: Status: Active Protocol: Document 06/26/21 13:45 AMB (Rec: 06/27/21 13:44 AMB [email or web address]) Posture Evaluation Comments Posture Comments Increased lumbar lordosis. PT-OP-K Range of Motion Start: 06/26/21 08:34 Freq: Status: Active Protocol: Document 06/26/21 13:45 AMB (Rec: 06/27/21 13:44 AMB [email or web address]) Lumbar Spine Range of Motion Lumbar Spine Active Degrees Testing Position Standing Flexion 20 Extension 5 Lateral Flexion Left 20 Lateral Flexion Right 20 ROM Limitations Pain PT-OP-M Strength Start: 06/26/21 08:34 Freq: Status: Active Protocol: Document 06/26/21 13:45 AMB (Rec: 06/27/21 13:44 AMB [email or web address]) Hip Strength Hip Manual Muscle Testing Left Flexion (L2) 4+ Good+ Extension (S1) 4 Good Abduction 4 Good Right Flexion (L2) 4+ Good+ Extension (S1) 4 Good Abduction 4 Good Ankle/Foot Strength Ankle and Foot Manual Muscle Testing Right Dorsiflexion (L4) 5 Normal Plantarflexion (S1) 5 Normal Left Dorsiflexion (L4) 4 Good Plantarflexion (S1) 4- Good- PT-OP-Q Treatments Start: 06/26/21 08:34 Freq: Status: Active Protocol: Document 07/28/21 14:30 AMB (Rec: 07/30/21 10:26 AMB [email or web address]) Therapeutic Exercises Sitting Exercises 2 Sitting Exercise Name hip abd Side bilateral Resistance #2 t band Reps/Minutes 2x10 Standing Exercises 2 Standing Exercise Name standing sidebend stretch Side bilateral Reps/Minutes 3x10 1 Standing Exercise Name postural alignment Comments encourage posterior pelvic tilt, decrease lumbar lordosis Other Exercises 4 Other Exercise Name quadruped hip ER Comments painful and very weak on R 3 Other Exercise Name lumbar sidebend in quadruped Reps/Minutes 10 2 Other Exercise Name cat/cow Reps/Minutes 10 Comments avoiding lumbar extension to neutral only 1 Other Exercise Name quadruped TA Reps/Minutes 10 Manual Therapy Treatment Soft Tissue Mobilization 1 Body Location bilateral IT bands Mobilization Type Myofascial Release Intensity/Depth Superficial Body Position Prone Comments on pillow PT-OP-R Modalities Start: 07/20/21 15:49 Freq: Status: Active Protocol: Document 07/20/21 13:45 AMB (Rec: 07/20/21 15:50 AMB [email or web address]) Electric Stimulation Electric Stimulation Interferential Current (IFC) Body Location L gluteals Duration (Minutes) 8 Comments prone on pillow PT-OP-T Assessment and Plan Start: 06/26/21 08:34 Freq: Status: Active Protocol: Document 07/28/21 14:30 AMB (Rec: 07/28/21 16:00 AMB [email or web address]) Physical Therapy Assessment Assessment Summary Assessment Pt given written HEP today and worked on walking with more spinal rotation. Pt walks without spinal rotation and had a difficult time swinging her arms, fixed in very anterior pelvic tilt and quite weak in hips. Physical Therapy Plan Next Visit Focus/Plan Next Note Type Treatment Note Next Visit Plan HEP: core stabilization in quadruped or on ball. Manual therapy with pillow, follow up on kinesiotape.
--- NOTE | 2021-08-01 15:48 | PT.OPPOC ---
Physical, Occupational & Speech Therapy At [facility] Current Diagnoses Other specified related conditions, unspecified trimester (08/01/21) Pelvic and perineal pain (08/01/21) 18 weeks gestation of (08/01/21) Visit Care Team Role Provider Type Mendel Urbina DO Primary Care Provider Physician Specialty: Family Practice Address: [address] [place] [address], [address] Email: [email or web address] Sue Sun MD Attending Provider Physician Referring Provider Specialty: DIRECTOR OF RESEARCH AND DEVELOPMENT Address: [address] [place] [address], [address] Email: [email or web address] Plan Of Care PT-OP-T Assessment and Plan Start: 06/26/21 08:34 Freq: Status: Active Protocol: Document 08/01/21 14:30 AMB (Rec: 08/01/21 15:47 AMB [email or web address]) Physical Therapy Assessment Goals Three Impairment mobility Short Term Goal (STG) Kjrstie will roll over in bed with 5/10 pain or less. STG Duration 4 weeks Bowling Alley Refinisher Goal (LTG) Kjrstie will be independent and consistent with a HEP to help stablize her core and pelvis. LTG Duration 8 weeks Two Impairment pain Short Term Goal (STG) Kjrstie will lift 15 pounds from floor to waist height with good body mechanics and 5 /10 pain or less. STG Duration 4 weeks Bowling Alley Refinisher Goal (LTG) Kjrstie will walk for 30 minutes with 5/10 pain or less . One Impairment ROM Short Term Goal (STG) Kjrstie will improve her lumbar flexion AROM to 30 degrees. STG Duration 4 weeks Assessment Summary Assessment Pt having less pain today but continues to have anterior pelvic tilt, poor trunk rotation due to stiffness/ pain. Physical Therapy Plan Frequency and Duration Frequency of Treatment 2x/Week Duration of Treatment 8 weeks Plan of Care Start Date 06/26/21 Plan of Care End Date 08/21/21 Therapeutic Interventions Therapeutic Interventions Aquatic Therapy,Gait Training, Home Exercise Program,Joint Mobilizations,Manual Therapy, Neuromuscular Re-education, Self-Care/Home Management,Soft Tissue Mobilization, Therapeutic Activities, Therapeutic Exercises Modalities Cold Pack/Ice Massage,Hot Packs Next Visit Focus/Plan Next Note Type Treatment Note Next Visit Plan HEP: core stabilization in quadruped or on ball. Manual therapy with pillow. Add in aquatics focusing on lateral hip pain/QL tightness improving gait mechanics- pt with slow gait with reduced trunk rotation Plan of Care Dates Plan of Care Start Date 06/26/21 Plan of Care End Date 08/21/21 Electronically Signed by: Gisel Bates, PT 08/01/21 [id number] Please Sign and Return: I have reviewed this Plan of Care and certify that the skilled therapy services above are required to meet the patient?s needs. Physician Signature Date Printed Name and Credentials Clinical Instructor Signature Printed Name and Credentials
--- NOTE | 2021-08-01 15:48 | PT.OTN ---
Current Diagnoses Other specified related conditions, unspecified trimester (08/01/21) Pelvic and perineal pain (08/01/21) 18 weeks gestation of (08/01/21) Physical Therapy Treatment Note PT-OP-A Visit Information Start: 06/26/21 08:34 Freq: Status: Active Protocol: Document 08/01/21 14:30 AMB (Rec: 08/01/21 15:47 AMB [email or web address]) Out-Patient Physical Therapy Visit Information Visit Information Visit Type Treatment Note Visit Start Time 14:30 Visit Stop Time 15:15 Total Visit Minutes 45 Visit Number 4 PT-OP-B Current Condition Start: 06/26/21 08:34 Freq: Status: Active Protocol: Document 06/26/21 13:45 AMB (Rec: 06/27/21 12:01 AMB [email or web address]) Current Condition History of Current Condition Onset Date a few months ago Current Complaints bilateral sciatica, pubic symphysis pain History of Current Condition This is Cr's 5th . 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 She is having pain with walking, lifting, really any activity. She tried a band and didn't notice a lot of difference. She has difficulty with lying on her sides, but can't lie on her back and does have pain rolling over. The left seems to be worse. Sitting increases sciatica pain. Pubic symphysis pain seems to be better since going on light duty, but sciatica is not and is staying the same. Due October 14. Prior Functional Status Baseline Function- ADL's Independent Baseline Function- Mobility Independent Current Functional Impairments (Reported) Functional Limitations- ADL's Light duty at work Personal Factors Other Personal Factors That May Effect , hx multiple C- Therapy/Recovery section PT-OP-C Subjective Start: 06/26/21 08:34 Freq: Status: Active Protocol: Document 08/01/21 14:30 AMB (Rec: 08/01/21 15:47 AMB [email or web address]) OP-PT Subjective Patient Comments Patient Comments Pt is feeling better today, but it is also earlier in the week and she usually feels better earlier in the week. PT-OP-F Manual Assessment Start: 06/26/21 08:34 Freq: Status: Active Protocol: Document 06/26/21 13:45 AMB (Rec: 06/27/21 13:44 AMB [email or web address]) Manual Assessments Other Manual Assessments Other Manual Assessments Significant tenderness over gluteal muscle L>R, tender to even light touch. Less tender at lumbar spine. PT-OP-J Posture/Palpation/Skin Start: 06/26/21 08:34 Freq: Status: Active Protocol: Document 06/26/21 13:45 AMB (Rec: 06/27/21 13:44 AMB [email or web address]) Posture Evaluation Comments Posture Comments Increased lumbar lordosis. PT-OP-K Range of Motion Start: 06/26/21 08:34 Freq: Status: Active Protocol: Document 06/26/21 13:45 AMB (Rec: 06/27/21 13:44 AMB [email or web address]) Lumbar Spine Range of Motion Lumbar Spine Active Degrees Testing Position Standing Flexion 20 Extension 5 Lateral Flexion Left 20 Lateral Flexion Right 20 ROM Limitations Pain PT-OP-M Strength Start: 06/26/21 08:34 Freq: Status: Active Protocol: Document 06/26/21 13:45 AMB (Rec: 06/27/21 13:44 AMB [email or web address]) Hip Strength Hip Manual Muscle Testing Left Flexion (L2) 4+ Good+ Extension (S1) 4 Good Abduction 4 Good Right Flexion (L2) 4+ Good+ Extension (S1) 4 Good Abduction 4 Good Ankle/Foot Strength Ankle and Foot Manual Muscle Testing Right Dorsiflexion (L4) 5 Normal Plantarflexion (S1) 5 Normal Left Dorsiflexion (L4) 4 Good Plantarflexion (S1) 4- Good- PT-OP-Q Treatments Start: 06/26/21 08:34 Freq: Status: Active Protocol: Document 08/01/21 14:30 AMB (Rec: 08/01/21 15:47 AMB [email or web address]) Therapeutic Exercises Sidelying Exercises 1 Sidelying Exercise Name clamshell Side bilateral Reps/Minutes 2x10 Standing Exercises 1 Standing Exercise Name postural alignment Comments encourage posterior pelvic tilt, decrease lumbar lordosis Other Exercises 3 Other Exercise Name lumbar sidebend in quadruped Reps/Minutes 10 2 Other Exercise Name cat/cow Reps/Minutes 10 Comments avoiding lumbar extension to neutral only 1 Other Exercise Name quadruped TA Reps/Minutes 10 Manual Therapy Treatment Taping 1 Body Location l/s junction Treatment Focus stabilization Type of Tape Kinesio Tape Comments star for stabilization PT-OP-R Modalities Start: 07/20/21 15:49 Freq: Status: Active Protocol: Document 07/20/21 13:45 AMB (Rec: 07/20/21 15:50 AMB [email or web address]) Electric Stimulation Electric Stimulation Interferential Current (IFC) Body Location L gluteals Duration (Minutes) 8 Comments prone on pillow PT-OP-T Assessment and Plan Start: 06/26/21 08:34 Freq: Status: Active Protocol: Document 08/01/21 14:30 AMB (Rec: 08/01/21 15:47 AMB [email or web address]) Physical Therapy Assessment Goals Three Impairment mobility Short Term Goal (STG) Cr will roll over in bed with 5/10 pain or less. STG Duration 4 weeks Aeronautical Design Engineer Goal (LTG) Cr will be independent and consistent with a HEP to help stablize her core and pelvis. LTG Duration 8 weeks Two Impairment pain Short Term Goal (STG) Cr will lift 15 pounds from floor to waist height with good body mechanics and 5 /10 pain or less. STG Duration 4 weeks Fdc Goal (LTG) Cr will walk for 30 minutes with 5/10 pain or less . One Impairment ROM Short Term Goal (STG) Cr will improve her lumbar flexion AROM to 30 degrees. STG Duration 4 weeks Assessment Summary Assessment Pt having less pain today but continues to have anterior pelvic tilt, poor trunk rotation due to stiffness/ pain. Physical Therapy Plan Frequency and Duration Frequency of Treatment 2x/Week Duration of Treatment 8 weeks Plan of Care Start Date 06/26/21 Plan of Care End Date 08/21/21 Therapeutic Interventions Therapeutic Interventions Aquatic Therapy,Gait Training, Home Exercise Program,Joint Mobilizations,Manual Therapy, Neuromuscular Re-education, Self-Care/Home Management,Soft Tissue Mobilization, Therapeutic Activities, Therapeutic Exercises Modalities Cold Pack/Ice Massage,Hot Packs Next Visit Focus/Plan Next Note Type Treatment Note Next Visit Plan HEP: core stabilization in quadruped or on ball. Manual therapy with pillow. Add in aquatics focusing on lateral hip pain/QL tightness improving gait mechanics- pt with slow gait with reduced trunk rotation
--- NOTE | 2021-08-07 14:59 | PT.OTN ---
Current Diagnoses Other specified related conditions, unspecified trimester (08/07/21) Pelvic and perineal pain (08/07/21) 18 weeks gestation of (08/07/21) Physical Therapy Treatment Note PT-OP-A Visit Information Start: 06/26/21 08:34 Freq: Status: Active Protocol: Document 08/07/21 14:35 LJ (Rec: 08/07/21 14:59 LJ [email or web address]) Out-Patient Physical Therapy Visit Information Visit Information Visit Type Treatment Note Visit Start Time 11:45 Visit Stop Time 12:30 Total Visit Minutes 45 Visit Number 5 Number of CUSTOMER SUPPORT ADVISOR Visits 1 PT-OP-B Current Condition Start: 06/26/21 08:34 Freq: Status: Active Protocol: Document 06/26/21 13:45 AMB (Rec: 06/27/21 12:01 AMB [email or web address]) Current Condition History of Current Condition Onset Date a few months ago Current Complaints bilateral sciatica, pubic symphysis pain History of Current Condition This is Cr's 4th . 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 She is having pain with walking, lifting, really any activity. She tried a band and didn't notice a lot of difference. She has difficulty with lying on her sides, but can't lie on her back and does have pain rolling over. The left seems to be worse. Sitting increases sciatica pain. Pubic symphysis pain seems to be better since going on light duty, but sciatica is not and is staying the same. Due October 14. Prior Functional Status Baseline Function- ADL's Independent Baseline Function- Mobility Independent Current Functional Impairments (Reported) Functional Limitations- ADL's Light duty at work Personal Factors Other Personal Factors That May Effect , hx multiple C- Therapy/Recovery section PT-OP-C Subjective Start: 06/26/21 08:34 Freq: Status: Active Protocol: Document 08/07/21 14:35 LJ (Rec: 08/07/21 14:59 LJ [email or web address]) OP-PT Subjective Patient Comments Patient Comments Pt reports mild anterior hip pain in RLE. No other pain or discomfort reported. She is on light duty at work. PT-OP-F Manual Assessment Start: 06/26/21 08:34 Freq: Status: Active Protocol: Document 06/26/21 13:45 AMB (Rec: 06/27/21 13:44 AMB [email or web address]) Manual Assessments Other Manual Assessments Other Manual Assessments Significant tenderness over gluteal muscle L>R, tender to even light touch. Less tender at lumbar spine. PT-OP-J Posture/Palpation/Skin Start: 06/26/21 08:34 Freq: Status: Active Protocol: Document 06/26/21 13:45 AMB (Rec: 06/27/21 13:44 AMB [email or web address]) Posture Evaluation Comments Posture Comments Increased lumbar lordosis. PT-OP-K Range of Motion Start: 06/26/21 08:34 Freq: Status: Active Protocol: Document 06/26/21 13:45 AMB (Rec: 06/27/21 13:44 AMB [email or web address]) Lumbar Spine Range of Motion Lumbar Spine Active Degrees Testing Position Standing Flexion 20 Extension 5 Lateral Flexion Left 20 Lateral Flexion Right 20 ROM Limitations Pain PT-OP-M Strength Start: 06/26/21 08:34 Freq: Status: Active Protocol: Document 06/26/21 13:45 AMB (Rec: 06/27/21 13:44 AMB [email or web address]) Hip Strength Hip Manual Muscle Testing Left Flexion (L2) 4+ Good+ Extension (S1) 4 Good Abduction 4 Good Right Flexion (L2) 4+ Good+ Extension (S1) 4 Good Abduction 4 Good Ankle/Foot Strength Ankle and Foot Manual Muscle Testing Right Dorsiflexion (L4) 5 Normal Plantarflexion (S1) 5 Normal Left Dorsiflexion (L4) 4 Good Plantarflexion (S1) 4- Good- PT-OP-Q Treatments Start: 06/26/21 08:34 Freq: Status: Active Protocol: Document 08/01/21 14:30 AMB (Rec: 08/01/21 15:47 AMB [email or web address]) Therapeutic Exercises Sidelying Exercises 1 Sidelying Exercise Name clamshell Side bilateral Reps/Minutes 2x10 Standing Exercises 1 Standing Exercise Name postural alignment Comments encourage posterior pelvic tilt, decrease lumbar lordosis Other Exercises 3 Other Exercise Name lumbar sidebend in quadruped Reps/Minutes 10 2 Other Exercise Name cat/cow Reps/Minutes 10 Comments avoiding lumbar extension to neutral only 1 Other Exercise Name quadruped TA Reps/Minutes 10 Manual Therapy Treatment Taping 1 Body Location l/s junction Treatment Focus stabilization Type of Tape Kinesio Tape Comments star for stabilization PT-OP-R Modalities Start: 07/20/21 15:49 Freq: Status: Active Protocol: Document 07/20/21 13:45 AMB (Rec: 07/20/21 15:50 AMB [email or web address]) Electric Stimulation Electric Stimulation Interferential Current (IFC) Body Location L gluteals Duration (Minutes) 8 Comments prone on pillow PT-OP-S Aquatic Treatment Start: 08/07/21 14:33 Freq: Status: Active Protocol: Document 08/07/21 14:35 LJ (Rec: 08/07/21 14:59 LJ [email or web address]) Aquatics Treatment Pool Entry/Exit Pool Entry/Exit Method Stairs Assistance Independent Water Walking [place] Water Level Chest Level Level of Assistance Standby Assistance,Verbal Cues [place] Water Level Chest Level Level of Assistance Standby Assistance,Verbal Cues Comments tapping opposite knee Sideways Water Level Chest Level Level of Assistance Verbal Cues Comments HAB/AD UEs Backwards Water Level Chest Level Level of Assistance Verbal Cues Forwards Water Level Chest Level Level of Assistance Verbal Cues Lower Extremity Exercises Hip Circles Body Position Standing Water Level Chest Level Reps/Duration 10 each direction B Comments emphasize TA bracing Hip AB/AD Body Position Standing Water Level Chest Level Reps/Duration 10 x 2, LLE only Comments pain with flexion in RLE hip flex/ext Body Position Standing Water Level Chest Level Reps/Duration 10 x 2 B Loaded squats Details lifting #7 wt from step to deck Body Position Standing Water Level Chest Level Equipment Ankle Weight- 7.0# Reps/Duration 8 each direction Comments squat, grasp wt, stand, step, place wt on deck free the hip Body Position Standing Water Level Chest Level Reps/Duration 10 B Lower Extremity Stretches ITB Body Position Standing Water Level Waist Level Reps/Duration 30 sec x 2, B Comments standing at wall Piriformis Body Position Standing Water Level Waist Level Reps/Duration 30 min x 2, B Comments pain in anterior RLE hip flexor Gastroc, soleus Body Position Standing Water Level Chest Level Reps/Duration 30 sec x 2, B Comments toes on wall, heels on floor HS Body Position Standing Water Level Waist Level Reps/Duration 30 sec x 2, B Comments on stairs Spinal Exercises Spinal rotation Body Position Standing Water Level Chest Level Reps/Duration 10 rotations Comments emphasize TS activation and abdominal bracing, WBOS Independence Activities Independence Activities Bicycle,Running Other Activities Traction with #5 on RLE 8 minutes Equipment #5 wts, lg yellow floatation device Duration 8 min PT-OP-T Assessment and Plan Start: 06/26/21 08:34 Freq: Status: Active Protocol: Document 08/07/21 14:35 HERBERT (Rec: 08/07/21 14:59 [email or web address]) Physical Therapy Assessment Rehab Potential Rehabilitation Potential Fair Evaluation Complexity Number of Personal Factors/Comorbidities 1-2 Number of Body Systems Impaired 4 or More Clinical Presentation at Evaluation Evolving Impairments Impairments Pain,Posture,ROM,Strength Goals Three Impairment mobility Short Term Goal (STG) Cr will roll over in bed with 5/10 pain or less. STG Duration 4 weeks Hspt Tutor Goal (LTG) Cr will be independent and consistent with a HEP to help stablize her core and pelvis. LTG Duration 8 weeks Two Impairment pain Short Term Goal (STG) Cr will lift 15 pounds from floor to waist height with good body mechanics and 5 /10 pain or less. STG Duration 4 weeks Hspt Tutor Goal (LTG) Cr will walk for 30 minutes with 5/10 pain or less . One Impairment ROM Short Term Goal (STG) Cr will improve her lumbar flexion AROM to 30 degrees. STG Duration 4 weeks Assessment Summary Assessment Pt responded well to aquatic activities. Difficulty with stabilizing in deep water. Reported decrease in pain after traction in deep water. Next treatment focus on trunk rotation and hip mobility/ strengthening Physical Therapy Plan Frequency and Duration Frequency of Treatment 2x/Week Duration of Treatment 8 weeks Plan of Care Start Date 06/26/21 Plan of Care End Date 08/21/21 Therapeutic Interventions Therapeutic Interventions Aquatic Therapy,Gait Training, Home Exercise Program,Joint Mobilizations,Manual Therapy, Neuromuscular Re-education, Self-Care/Home Management,Soft Tissue Mobilization, Therapeutic Activities, Therapeutic Exercises Modalities Cold Pack/Ice Massage,Hot Packs Next Visit Focus/Plan Next Note Type Treatment Note Next Visit Plan HEP: core stabilization in quadruped or on ball. Manual therapy with pillow. Add in aquatics focusing on lateral hip pain/QL tightness improving gait mechanics- pt with slow gait with reduced trunk rotation
--- NOTE | 2021-08-10 15:39 | PT.OTN ---
Current Diagnoses Other specified related conditions, unspecified trimester (08/10/21) Pelvic and perineal pain (08/10/21) 18 weeks gestation of (08/10/21) Physical Therapy Treatment Note PT-OP-A Visit Information Start: 06/26/21 08:34 Freq: Status: Active Protocol: Document 08/10/21 14:30 AMB (Rec: 08/10/21 15:30 AMB [email or web address]) Out-Patient Physical Therapy Visit Information Visit Information Visit Type Treatment Note Visit Start Time 14:30 Visit Stop Time 15:15 Total Visit Minutes 45 Visit Number 6 Number of ENROLLMENT MANAGEMENT DIRECTOR Visits 0 PT-OP-B Current Condition Start: 06/26/21 08:34 Freq: Status: Active Protocol: Document 06/26/21 13:45 AMB (Rec: 06/27/21 12:01 AMB [email or web address]) Current Condition History of Current Condition Onset Date a few months ago Current Complaints bilateral sciatica, pubic symphysis pain History of Current Condition This is Cr's 5th . 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 She is having pain with walking, lifting, really any activity. She tried a band and didn't notice a lot of difference. She has difficulty with lying on her sides, but can't lie on her back and does have pain rolling over. The left seems to be worse. Sitting increases sciatica pain. Pubic symphysis pain seems to be better since going on light duty, but sciatica is not and is staying the same. Due October 14. Prior Functional Status Baseline Function- ADL's Independent Baseline Function- Mobility Independent Current Functional Impairments (Reported) Functional Limitations- ADL's Light duty at work Personal Factors Other Personal Factors That May Effect , hx multiple C- Therapy/Recovery section PT-OP-C Subjective Start: 06/26/21 08:34 Freq: Status: Active Protocol: Document 08/10/21 14:30 AMB (Rec: 08/10/21 15:30 AMB [email or web address]) OP-PT Subjective Patient Comments Patient Comments Pt reports R lateral hip pain today, hasn't been having as much sciatica. PT-OP-F Manual Assessment Start: 06/26/21 08:34 Freq: Status: Active Protocol: Document 06/26/21 13:45 AMB (Rec: 06/27/21 13:44 AMB [email or web address]) Manual Assessments Other Manual Assessments Other Manual Assessments Significant tenderness over gluteal muscle L>R, tender to even light touch. Less tender at lumbar spine. PT-OP-J Posture/Palpation/Skin Start: 06/26/21 08:34 Freq: Status: Active Protocol: Document 06/26/21 13:45 AMB (Rec: 06/27/21 13:44 AMB [email or web address]) Posture Evaluation Comments Posture Comments Increased lumbar lordosis. PT-OP-K Range of Motion Start: 06/26/21 08:34 Freq: Status: Active Protocol: Document 06/26/21 13:45 AMB (Rec: 06/27/21 13:44 AMB [email or web address]) Lumbar Spine Range of Motion Lumbar Spine Active Degrees Testing Position Standing Flexion 20 Extension 5 Lateral Flexion Left 20 Lateral Flexion Right 20 ROM Limitations Pain PT-OP-M Strength Start: 06/26/21 08:34 Freq: Status: Active Protocol: Document 06/26/21 13:45 AMB (Rec: 06/27/21 13:44 AMB [email or web address]) Hip Strength Hip Manual Muscle Testing Left Flexion (L2) 4+ Good+ Extension (S1) 4 Good Abduction 4 Good Right Flexion (L2) 4+ Good+ Extension (S1) 4 Good Abduction 4 Good Ankle/Foot Strength Ankle and Foot Manual Muscle Testing Right Dorsiflexion (L4) 5 Normal Plantarflexion (S1) 5 Normal Left Dorsiflexion (L4) 4 Good Plantarflexion (S1) 4- Good- PT-OP-Q Treatments Start: 06/26/21 08:34 Freq: Status: Active Protocol: Document 08/10/21 14:30 AMB (Rec: 08/10/21 15:39 AMB [email or web address]) Therapeutic Exercises Sidelying Exercises 1 Sidelying Exercise Name clamshell Side bilateral Reps/Minutes 2x10 Sitting Exercises 2 Sitting Exercise Name hip abd Side bilateral Resistance #2 t band Reps/Minutes 2x10 1 Sitting Exercise Name seated sciatic glide Reps/Minutes 3 Manual Therapy Treatment Soft Tissue Mobilization 1 Body Location R IT band Mobilization Type Myofascial Release Intensity/Depth Superficial Body Position Sidelying Comments with distraction Taping 1 Body Location l/s junction Treatment Focus stabilization Type of Tape Kinesio Tape Comments star for stabilization Document 08/10/21 14:30 AMB (Rec: 08/10/21 15:39 AMB [email or web address]) Physical Therapy Assessment Goals Three Impairment mobility Short Term Goal (STG) Cr will roll over in bed with 5/10 pain or less. STG Duration 4 weeks Mcfp Goal (LTG) Cr will be independent and consistent with a HEP to help stablize her core and pelvis. LTG Duration 8 weeks Two Impairment pain Short Term Goal (STG) Cr will lift 15 pounds from floor to waist height with good body mechanics and 5 /10 pain or less. STG Duration 4 weeks Mcfp Goal (LTG) Cr will walk for 30 minutes with 5/10 pain or less . One Impairment ROM Short Term Goal (STG) Cr will improve her lumbar flexion AROM to 30 degrees. STG Duration 4 weeks Assessment Summary Assessment Cr is doing better with her exercises and pain, she thinks she is slowly getting better. She is getting Bullock Chavez contractions when she walks a lot at this point. She was instructed in depth in how to apply kinesiotape today. Physical Therapy Plan Next Visit Focus/Plan Next Note Type Treatment Note Next Visit Plan HEP: core stabilization in quadruped or on ball. Manual therapy with pillow. Add in aquatics focusing on lateral hip pain/QL tightness improving gait mechanics- pt with slow gait with reduced trunk rotation
--- NOTE | 2021-08-14 14:41 | PT.OTN ---
Current Diagnoses Other specified related conditions, unspecified trimester (08/10/21) Pelvic and perineal pain (08/10/21) 18 weeks gestation of (08/10/21) Physical Therapy Treatment Note PT-OP-A Visit Information Start: 06/26/21 08:34 Freq: Status: Active Protocol: Document 08/14/21 14:29 LJ (Rec: 08/14/21 14:41 LJ [email or web address]) Out-Patient Physical Therapy Visit Information Visit Information Visit Type Treatment Note Visit Start Time 11:45 Visit Stop Time 12:30 Total Visit Minutes 45 Visit Number 7 Number of ADOPTION WORKER Visits 2 PT-OP-B Current Condition Start: 06/26/21 08:34 Freq: Status: Active Protocol: Document 06/26/21 13:45 AMB (Rec: 06/27/21 12:01 AMB [email or web address]) Current Condition History of Current Condition Onset Date a few months ago Current Complaints bilateral sciatica, pubic symphysis pain History of Current Condition This is Cr's 4th . 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 She is having pain with walking, lifting, really any activity. She tried a band and didn't notice a lot of difference. She has difficulty with lying on her sides, but can't lie on her back and does have pain rolling over. The left seems to be worse. Sitting increases sciatica pain. Pubic symphysis pain seems to be better since going on light duty, but sciatica is not and is staying the same. Due October 14. Prior Functional Status Baseline Function- ADL's Independent Baseline Function- Mobility Independent Current Functional Impairments (Reported) Functional Limitations- ADL's Light duty at work Personal Factors Other Personal Factors That May Effect , hx multiple C- Therapy/Recovery section PT-OP-C Subjective Start: 06/26/21 08:34 Freq: Status: Active Protocol: Document 08/14/21 14:29 LJ (Rec: 08/14/21 14:41 LJ [email or web address]) OP-PT Subjective Patient Comments Patient Comments Lateral hip pain and sciatica improved but hips sore from walking with kids while trick- or-treating PT-OP-F Manual Assessment Start: 06/26/21 08:34 Freq: Status: Active Protocol: Document 06/26/21 13:45 AMB (Rec: 06/27/21 13:44 AMB [email or web address]) Manual Assessments Other Manual Assessments Other Manual Assessments Significant tenderness over gluteal muscle L>R, tender to even light touch. Less tender at lumbar spine. PT-OP-J Posture/Palpation/Skin Start: 06/26/21 08:34 Freq: Status: Active Protocol: Document 06/26/21 13:45 AMB (Rec: 06/27/21 13:44 AMB [email or web address]) Posture Evaluation Comments Posture Comments Increased lumbar lordosis. PT-OP-K Range of Motion Start: 06/26/21 08:34 Freq: Status: Active Protocol: Document 06/26/21 13:45 AMB (Rec: 06/27/21 13:44 AMB [email or web address]) Lumbar Spine Range of Motion Lumbar Spine Active Degrees Testing Position Standing Flexion 20 Extension 5 Lateral Flexion Left 20 Lateral Flexion Right 20 ROM Limitations Pain PT-OP-M Strength Start: 06/26/21 08:34 Freq: Status: Active Protocol: Document 06/26/21 13:45 AMB (Rec: 06/27/21 13:44 AMB [email or web address]) Hip Strength Hip Manual Muscle Testing Left Flexion (L2) 4+ Good+ Extension (S1) 4 Good Abduction 4 Good Right Flexion (L2) 4+ Good+ Extension (S1) 4 Good Abduction 4 Good Ankle/Foot Strength Ankle and Foot Manual Muscle Testing Right Dorsiflexion (L4) 5 Normal Plantarflexion (S1) 5 Normal Left Dorsiflexion (L4) 4 Good Plantarflexion (S1) 4- Good- PT-OP-Q Treatments Start: 06/26/21 08:34 Freq: Status: Active Protocol: Document 08/10/21 14:30 AMB (Rec: 08/10/21 15:39 AMB [email or web address]) Therapeutic Exercises Sidelying Exercises 1 Sidelying Exercise Name clamshell Side bilateral Reps/Minutes 2x10 Sitting Exercises 2 Sitting Exercise Name hip abd Side bilateral Resistance #2 t band Reps/Minutes 2x10 1 Sitting Exercise Name seated sciatic glide Reps/Minutes 3 Manual Therapy Treatment Soft Tissue Mobilization 1 Body Location R IT band Mobilization Type Myofascial Release Intensity/Depth Superficial Body Position Sidelying Comments with distraction Taping 1 Body Location l/s junction Treatment Focus stabilization Type of Tape Kinesio Tape Comments star for stabilization PT-OP-R Modalities Start: 07/20/21 15:49 Freq: Status: Active Protocol: Document 07/20/21 13:45 AMB (Rec: 07/20/21 15:50 AMB [email or web address]) Electric Stimulation Electric Stimulation Interferential Current (IFC) Body Location L gluteals Duration (Minutes) 8 Comments prone on pillow PT-OP-S Aquatic Treatment Start: 08/07/21 14:33 Freq: Status: Active Protocol: Document 08/14/21 14:29 LJ (Rec: 08/14/21 14:41 LJ [email or web address]) Aquatics Treatment Pool Entry/Exit Pool Entry/Exit Method Stairs Assistance Independent Water Walking [place] Water Level Chest Level Level of Assistance Standby Assistance,Verbal Cues [place] December Water Level Chest Level Level of Assistance Standby Assistance,Verbal Cues Comments tapping opposite knee Sideways Water Level Chest Level Level of Assistance Verbal Cues Comments HAB/AD UEs Backwards Water Level Chest Level Level of Assistance Verbal Cues Forwards Water Level Chest Level Level of Assistance Verbal Cues Lower Extremity Exercises Hip Circles Body Position Standing Water Level Chest Level Reps/Duration 10 each direction B Comments emphasize TA bracing Hip AB/AD Body Position Standing Water Level Chest Level Reps/Duration 10 x 2, LLE only Comments pain with flexion in RLE free the hip Body Position Standing Water Level Chest Level Reps/Duration 10 B Lower Extremity Stretches ITB Body Position Standing Water Level Waist Level Reps/Duration 30 sec x 2, B Comments standing at wall Piriformis Body Position Sitting Water Level Chest Level Reps/Duration 30 sec x 2, B Gastroc, soleus Body Position Standing Water Level Chest Level Reps/Duration 30 sec x 2, B Comments toes on wall, heels on floor HS Body Position Standing Water Level Waist Level Reps/Duration 30 sec x 2, B Comments on stairs Spinal Exercises Spinal rotation Body Position Standing Water Level Chest Level Reps/Duration 10 rotations Comments emphasize TS activation and abdominal bracing, WBOS [place] Activities Other Activities Traction with #5 on RLE 10 minutes Equipment #5 wts, lg yellow floatation device Duration 10 min Manual Techniques Aquatic Massage B ball rolling ITB PT-OP-T Assessment and Plan Start: 06/26/21 08:34 Freq: Status: Active Protocol: Document 08/14/21 14:29 LJ (Rec: 08/14/21 14:41 LJ [email or web address]) Physical Therapy Assessment Rehab Potential Rehabilitation Potential Fair Evaluation Complexity Number of Personal Factors/Comorbidities 1-2 Number of Body Systems Impaired 4 or More Clinical Presentation at Evaluation Evolving Impairments Impairments Pain,Posture,ROM,Strength Goals Three Impairment mobility Short Term Goal (STG) Cr will roll over in bed with 5/10 pain or less. STG Duration 4 weeks Filtration Plant Mechanic Goal (LTG) Cr will be independent and consistent with a HEP to help stablize her core and pelvis. LTG Duration 8 weeks Two Impairment pain Short Term Goal (STG) Cr will lift 15 pounds from floor to waist height with good body mechanics and 5 /10 pain or less. STG Duration 4 weeks Halfway Goal (LTG) Cr will walk for 30 minutes with 5/10 pain or less . One Impairment ROM Short Term Goal (STG) Cr will improve her lumbar flexion AROM to 30 degrees. STG Duration 4 weeks Assessment Summary Assessment Pt with less pain today in RLE . Reports improvement with sciatic pain for several days. She also was able to step wider sideways to the right without pain. Spent several minutes rolling B ITB. Increased time in deep water traction. Physical Therapy Plan Frequency and Duration Frequency of Treatment 2x/Week Duration of Treatment 8 weeks Plan of Care Start Date 06/26/21 Plan of Care End Date 08/21/21 Therapeutic Interventions Therapeutic Interventions Aquatic Therapy,Gait Training, Home Exercise Program,Joint Mobilizations,Manual Therapy, Neuromuscular Re-education, Self-Care/Home Management,Soft Tissue Mobilization, Therapeutic Activities, Therapeutic Exercises Modalities Cold Pack/Ice Massage,Hot Packs Next Visit Focus/Plan Next Note Type Treatment Note Next Visit Plan AT focus on core stabilization and strengthening and massage ball. Continue with LE stretches to improve painfree hip movement.
--- NOTE | 2021-08-22 14:52 | PT-OP ANOTE ---
Pt completely forgot her PT appointment, it was really busy at work yesterday. She was very apologetic and stated she would be at her next appt.
--- NOTE | 2021-09-01 13:47 | PT.OTN ---
Current Diagnoses Other specified related conditions, unspecified trimester (09/01/21) Pelvic and perineal pain (09/01/21) 18 weeks gestation of (09/01/21) Physical Therapy Treatment Note PT-OP-A Visit Information Start: 06/26/21 08:34 Freq: Status: Active Protocol: Document 09/01/21 13:00 AMB (Rec: 09/01/21 13:40 AMB [id number]) Out-Patient Physical Therapy Visit Information Visit Information Visit Type Treatment Note Visit Start Time 13:00 Visit Stop Time 13:45 Total Visit Minutes 45 Visit Number 8 Number of DIRECTOR OF CORPORATE COMMUNICATIONS Visits 0 PT-OP-B Current Condition Start: 06/26/21 08:34 Freq: Status: Active Protocol: Document 06/26/21 13:45 AMB (Rec: 06/27/21 12:01 AMB [email or web address]) Current Condition History of Current Condition Onset Date a few months ago Current Complaints bilateral sciatica, pubic symphysis pain History of Current Condition This is Cr's 4th . 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 She is having pain with walking, lifting, really any activity. She tried a band and didn't notice a lot of difference. She has difficulty with lying on her sides, but can't lie on her back and does have pain rolling over. The left seems to be worse. Sitting increases sciatica pain. Pubic symphysis pain seems to be better since going on light duty, but sciatica is not and is staying the same. Due October 14. Prior Functional Status Baseline Function- ADL's Independent Baseline Function- Mobility Independent Current Functional Impairments (Reported) Functional Limitations- ADL's Light duty at work Personal Factors Other Personal Factors That May Effect , hx multiple C- Therapy/Recovery section PT-OP-C Subjective Start: 06/26/21 08:34 Freq: Status: Active Protocol: Document 09/01/21 13:00 AMB (Rec: 09/01/21 13:40 AMB [id number]) OP-PT Subjective Patient Comments Patient Comments Overall feeling better, rolling over remains the most challenging. PT-OP-F Manual Assessment Start: 06/26/21 08:34 Freq: Status: Active Protocol: Document 06/26/21 13:45 AMB (Rec: 06/27/21 13:44 AMB [email or web address]) Manual Assessments Other Manual Assessments Other Manual Assessments Significant tenderness over gluteal muscle L>R, tender to even light touch. Less tender at lumbar spine. PT-OP-J Posture/Palpation/Skin Start: 06/26/21 08:34 Freq: Status: Active Protocol: Document 06/26/21 13:45 AMB (Rec: 06/27/21 13:44 AMB [email or web address]) Posture Evaluation Comments Posture Comments Increased lumbar lordosis. PT-OP-K Range of Motion Start: 06/26/21 08:34 Freq: Status: Active Protocol: Document 06/26/21 13:45 AMB (Rec: 06/27/21 13:44 AMB [email or web address]) Lumbar Spine Range of Motion Lumbar Spine Active Degrees Testing Position Standing Flexion 20 Extension 5 Lateral Flexion Left 20 Lateral Flexion Right 20 ROM Limitations Pain PT-OP-M Strength Start: 06/26/21 08:34 Freq: Status: Active Protocol: Document 06/26/21 13:45 AMB (Rec: 06/27/21 13:44 AMB [email or web address]) Hip Strength Hip Manual Muscle Testing Left Flexion (L2) 4+ Good+ Extension (S1) 4 Good Abduction 4 Good Right Flexion (L2) 4+ Good+ Extension (S1) 4 Good Abduction 4 Good Ankle/Foot Strength Ankle and Foot Manual Muscle Testing Right Dorsiflexion (L4) 5 Normal Plantarflexion (S1) 5 Normal Left Dorsiflexion (L4) 4 Good Plantarflexion (S1) 4- Good- PT-OP-Q Treatments Start: 06/26/21 08:34 Freq: Status: Active Protocol: Document 09/01/21 13:00 AMB (Rec: 09/01/21 13:47 AMB [email or web address]) Therapeutic Exercises Sidelying Exercises 1 Sidelying Exercise Name clamshell Side bilateral Reps/Minutes 2x10 Sitting Exercises 3 Sitting Exercise Name ROLL IN Reps/Minutes 2X10 Other Exercises 5 Other Exercise Name QUADRUPED UE EXT Reps/Minutes 2x10 3 Other Exercise Name lumbar sidebend in quadruped Reps/Minutes 10 1 Other Exercise Name quadruped TA Reps/Minutes 10 PT-OP-R Modalities Start: 07/20/21 15:49 Freq: Status: Active Protocol: Document 07/20/21 13:45 AMB (Rec: 07/20/21 15:50 AMB [email or web address]) Electric Stimulation Electric Stimulation Interferential Current (IFC) Body Location L gluteals Duration (Minutes) 8 Comments prone on pillow PT-OP-S Aquatic Treatment Start: 08/07/21 14:33 Freq: Status: Active Protocol: Document 08/14/21 14:29 LJ (Rec: 08/14/21 14:41 LJ [email or web address]) Aquatics Treatment Pool Entry/Exit Pool Entry/Exit Method Stairs Assistance Independent Water Walking [place] Water Level Chest Level Level of Assistance Standby Assistance,Verbal Cues [place] Water Level Chest Level Level of Assistance Standby Assistance,Verbal Cues Comments tapping opposite knee Sideways Water Level Chest Level Level of Assistance Verbal Cues Comments HAB/AD UEs Backwards Water Level Chest Level Level of Assistance Verbal Cues For[place] Water Level Chest Level Level of Assistance Verbal Cues Lower Extremity Exercises Hip Circles Body Position Standing Water Level Chest Level Reps/Duration 10 each direction B Comments emphasize TA bracing Hip AB/AD Body Position Standing Water Level Chest Level Reps/Duration 10 x 2, LLE only Comments pain with flexion in RLE free the hip Body Position Standing Water Level Chest Level Reps/Duration 10 B Lower Extremity Stretches ITB Body Position Standing Water Level Waist Level Reps/Duration 30 sec x 2, B Comments standing at wall Piriformis Body Position Sitting Water Level Chest Level Reps/Duration 30 sec x 2, B Gastroc, soleus Body Position Standing Water Level Chest Level Reps/Duration 30 sec x 2, B Comments toes on wall, heels on floor HS Body Position Standing Water Level Waist Level Reps/Duration 30 sec x 2, B Comments on stairs Spinal Exercises Spinal rotation Body Position Standing Water Level Chest Level Reps/Duration 10 rotations Comments emphasize TS activation and abdominal bracing, WBOS [place] Activities Other Activities Traction with #5 on RLE 10 minutes Equipment #5 wts, lg yellow floatation device Duration 10 min Manual Techniques Aquatic Massage B ball rolling ITB PT-OP-T Assessment and Plan Start: 06/26/21 08:34 Freq: Status: Active Protocol: Document 09/01/21 13:00 AMB (Rec: 09/01/21 13:40 AMB [id number]) Physical Therapy Assessment Goals Three Impairment mobility Short Term Goal (STG) Kjrstie will roll over in bed with 5/10 pain or less. STG Duration 4 weeks Archivist Political History Goal (LTG) Kjrstie will be independent and consistent with a HEP to help stablize her core and pelvis. LTG Duration MET Two Impairment pain Short Term Goal (STG) Cr will lift 15 pounds from floor to waist height with good body mechanics and 5 /10 pain or less. STG Duration 4 weeks [facility] Goal (LTG) Cr will walk for 30 minutes with 5/10 pain or less . LTG Duration MET One Impairment ROM Short Term Goal (STG) Cr will improve her lumbar flexion AROM to 30 degrees. STG Duration 4 weeks Assessment Summary Assessment Cr is doing better as far as her pain. She is able to do most activities now with less pain with the exception of rolling over in bed which remains quite painful. She is going to be off work for the rest of the month so is hoping that will also help. She does not have any questions about her HEP and should be able to continue independently at this time. Physical Therapy Plan Frequency and Duration Frequency of Treatment 1x/Week Duration of Treatment 2 WEEKS Plan of Care Start Date 08/21/21 Plan of Care End Date 09/04/21 Therapeutic Interventions Therapeutic Interventions Aquatic Therapy,Gait Training, Home Exercise Program,Joint Mobilizations,Manual Therapy, Neuromuscular Re-education, Self-Care/Home Management,Soft Tissue Mobilization, Therapeutic Activities, Therapeutic Exercises Modalities Cold Pack/Ice Massage,Hot Packs Discharge Physical Therapy Discharge Reasons Goals Met
--- NOTE | 2021-09-01 13:47 | PT.OPPOC ---
Physical, Occupational & Speech Therapy At [facility] Current Diagnoses Other specified related conditions, unspecified trimester (09/01/21) Pelvic and perineal pain (09/01/21) 18 weeks gestation of (09/01/21) Visit Care Team Role Provider Type Mendel Urbina DO Primary Care Provider Physician Specialty: Family Practice Address: [address] [place] [address], [id number] Email: [email or web address] Sue Sun MD Attending Provider Physician Referring Provider Specialty: SPINNERET CLEANER Address: [address] [place] [address], [phone] Email: [email or web address] Plan Of Care PT-OP-T Assessment and Plan Start: 06/26/21 08:34 Freq: Status: Active Protocol: Document 09/01/21 13:00 AMB (Rec: 09/01/21 13:40 AMB [id number]) Physical Therapy Assessment Goals Three Impairment mobility Short Term Goal (STG) Cr will roll over in bed with 5/10 pain or less. STG Duration 4 weeks Fpc Goal (LTG) Cr will be independent and consistent with a HEP to help stablize her core and pelvis. LTG Duration MET Two Impairment pain Short Term Goal (STG) Cr will lift 15 pounds from floor to waist height with good body mechanics and 5 /10 pain or less. STG Duration 4 weeks Fpc Goal (LTG) Cr will walk for 30 minutes with 5/10 pain or less . LTG Duration MET One Impairment ROM Short Term Goal (STG) Cr will improve her lumbar flexion AROM to 30 degrees. STG Duration 4 weeks Assessment Summary Assessment Cr is doing better as far as her pain. She is able to do most activities now with less pain with the exception of rolling over in bed which remains quite painful. She is going to be off work for the rest of the month so is hoping that will also help. She does not have any questions about her HEP and should be able to continue independently at this time. Physical Therapy Plan Frequency and Duration Frequency of Treatment 1x/Week Duration of Treatment 2 WEEKS Plan of Care Start Date 08/21/21 Plan of Care End Date 09/04/21 Therapeutic Interventions Therapeutic Interventions Aquatic Therapy,Gait Training, Home Exercise Program,Joint Mobilizations,Manual Therapy, Neuromuscular Re-education, Self-Care/Home Management,Soft Tissue Mobilization, Therapeutic Activities, Therapeutic Exercises Modalities Cold Pack/Ice Massage,Hot Packs Discharge Physical Therapy Discharge Reasons Goals Met Plan of Care Dates Plan of Care Start Date 08/21/21 Plan of Care End Date 09/04/21 Electronically Signed by: Gisel aBtes, PT 09/01/21 [id number] Please Sign and Return: I have reviewed this Plan of Care and certify that the skilled therapy services above are required to meet the patient?s needs. Physician Signature Date Printed Name and Credentials Clinical Instructor Signature Printed Name and Credentials
== END 2021-11-14 08:52 ==
LOC: PHYS 13:00
PROVIDERS: PCP Family Medicine; Referring Provider Specialist; Visit Provider Specialist
DX: O26.899 Other specified pregnancy related conditions, unspecified trimester (principal); R10.2 Pelvic and perineal pain; Z3A.18 18 weeks gestation of pregnancy
CPT/HCPCS: 97014; 97110; 97113; 97140; 97162; G0283

== ENCOUNTER 2021-09-05 10:04 | Observation (INO) | payer OTHER, SELFPAY ==
--- NOTE | 2021-09-05 11:30 | P.HPOB_ITS ---
OB HPI Date/Time Date of admission: 09/05/21 Date Patient Seen: 09/05/21 Time Patient Seen: 11:30 History of Present Condition Chief complaint: : 5 Para: 3 Estimated Date of Delivery: 10/14/21 Estimated Gestational Age (weeks): 34 Narrative: Cr Rapp is a 30 year old female who comes in with premature rupture membranes at 2:30 a.m. without contractions. History of Present care: good care, initiated at week # (9), number of visits (7) and pounds weight gain (12) Dating criteria: based on 1st trimester US only Ultrasounds: normal mid trimester US Medical complications: other (Type 2 diabetes on metformin, hypothyroid on levothyroxine) Narrative: Patient had spontaneous rupture membranes at 2:30 a.m.. She has not had contractions. Preadmission Labs Blood type: A (+) positive -: Antibody screen: negative, GBS status: unknown (Swab done on admission), HBsAG: negative, HIV: negative and RPR/VDLR: negative -: Chlamydia screen: not detected and Gonorrhea screen: not detected -: Rubella: immune and Varicella: immune HCAB: negative Quad screen: Normal Narrative: Patient with type 2 diabetes on metformin at the start of her continued throughout her Evaluation Evaluation Baseline heart rate: 130 Variability: Moderate (11-25) monitor accelerations: Present Monitor Decelerations: Absent Contraction Frequency (minutes): 0 Category of Tracing: Reactive Status: Category l Dilation (cm): 0 Effacement (%): 0 station: -4 Position of cervix: mid Consistency: firm Non-invasive Membranes Rupture Test: positive [facility] Medical History (Updated 08/03/21 @ 12:10 by Sue Sun MD) Abnormal Pap smear of cervix (~05/2019) Acne rosacea (~2019) Borderline hypertension (~2018) Diabetes mellitus (~2018) History of being hospitalized (~12/2007) Hypothyroidism (~2018) Irregular menstrual cycle (~2015) Ovarian cyst (~2018) PCOS (polycystic ovarian syndrome) Pre-diabetes PTSD (post-traumatic stress disorder) SAB (spontaneous ) (~01/2005) Surgical History (Updated 03/07/21 @ 15:39 by Misty Velazquez RN) History of primary section (~04/16/07) Status post repeat low transverse section (~03/31/08) Status post repeat low transverse section (~08/07/13) Family History (Updated 03/07/21 @ 14:43 by Misty Velazquez RN) Father Hypertension Mental health problem Depression Suicidal thoughts Mother Diabetes mellitus Mental health problem Bipolar disorder Grandfather Hypertension Hyperlipidemia Grandmother Diabetes mellitus Mental health problem Bipolar disorder Grandfather History of heart disease Hypertension Grandmother Diabetes mellitus Family/Other Diabetes mellitus Social History (System 01/10/21 @ 11:40 by Sadie Sandoval) marital status: number of children: 3 household members: spouse and children lives independently: Yes pets and animals: Yes (X 3 dogs and X 2 cats : aware) education level: college occupational status: employed current occupational exposures/hazards: No special tremaine needs: No Smoking Status: Former smoker Tobacco: How many years used: 3 quit status: has quit before second hand exposure: No alcohol intake: former substance use type: does not use, former substance user and marijuana Meds Home Medications and Allergies Home Medications Medication Instructions Recorded Confirmed Type clindamycin phosphate 1 % lotion 1 applic TOPICAL BID #60 ml 01/30/21 08/31/21 Rx (Cleocin T) levothyroxine 25 mcg tablet 25 mcg PO tab 01/30/21 08/31/21 History metformin 750 mg tablet,extended mg PO 01/30/21 08/31/21 History release 24 hr prenat.vits,nery,umw-dwen-qmdhe 1 tab PO DAILY 03/07/21 08/31/21 History Allergies Allergy/AdvReac Type Severity Reaction Status Date / Time No Known Drug Allergies Allergy Verified 05/11/21 16:35 Review of Systems Review of Systems Narrative: Patient denies fevers. No headaches, scotomata, epigastric pain. Good movement. Leakage of fluid since 2:00 a.m.. No contractions. ROS: Yes All systems reviewed with the patient and are negative except as otherwise documented OB Exam Narrative Exam Narrative: Blood pressure 130/86, pulse 104, temperature 36.3? HEENT exam within normal limits. Lungs are clear to auscultation percussion. Heart is regular rate and rhythm no S3-S4 murmurs. Abdomen is gravid. Cervix is long, closed, high. Positive leakage of fluid with positive AmniSure. Assessment and Plan Assessment and Plan Assessment and Plan narrative: Pre term premature rupture membranes not in active labor. 3 prior sections with planned repeat section with tubal ligation for sterilization. Due to the patient's gestation of 34 weeks 2 days the patient will be transported to [facility] so that a intensive care unit is available for the baby. Patient was accepted by Dr. Riggins
[2021-09-05] MEDS: LACTATED RINGERS 1,000 ML 100 ML IV (11:55)
[2021-09-05 12:08] LABS: COVID19 -Nasal RAPID Negative (Negative)
[2021-09-05] MEDS: BETAMETHASONE 30 MG/5 ML MDV 12 MG IM (12:10)
[2021-09-05 12:11] LABS: Add Manual Diff / Slide Review NO; Basophils Absolute Auto 0 /uL (0-100); Basophils Percent Auto 0.5 % (0-2); Eosinophils Absolute Auto 0 /uL (0-450); Eosinophils Percent Auto 0.2 % (2-4); Hematocrit 39.6 % (36-46); Hemoglobin 13.5 g/dL (12.0-16.0); Lymphocytes Absolute Auto 1600 /uL (1100-4500); Lymphocytes Percent Auto 15.9 % (25-40); Mean Corpuscular HGB Conc 34.2 % (30-36); Mean Corpuscular Hemoglobin 30.3 PG (26-34); Mean Corpuscular Volume 88.8 fL (80-100); Monocytes Absolute Auto 500 /uL (0-900); Monocytes Percent Auto 5.3 % (3-14); Neutrophils Absolute Auto 7800 /uL (1500-7000); Neutrophils Percent Auto 78.1 % (50-75); Platelet Count 265 X10^3/uL (150-400); Red Blood Cell Count 4.46 X10^6/uL (4.0-5.2); Red Cell Distribution Width 13.5 % (11.6-14.8)
[2021-09-05 12:12] VITALS: BP 130/86
[2021-09-05 13:36] LABS: Strep Grp B PCR NEG for Grp B Strep
== END 2021-09-05 12:54 | disposition home or self-care (01) ==
PROVIDERS: Admitting Provider Specialist; PCP Family Medicine; Referring Provider Specialist; Visit Provider Specialist
DX: O42.913 Preterm premature rupture of membranes, unspecified as to length of time between rupture and onset of labor, third trimester (principal); Z3A.34 34 weeks gestation of pregnancy; O24.113 Pre-existing type 2 diabetes mellitus, in pregnancy, third trimester; O99.283 Endocrine, nutritional and metabolic diseases complicating pregnancy, third trimester; E03.9 Hypothyroidism, unspecified; Z79.84 Long term (current) use of oral hypoglycemic drugs
CPT/HCPCS: 36415; 59025; 59050; 84112; 85025; 87081; 87635; 87653; 96360; 96372; C9803; G0378; G0379; J0702

== ENCOUNTER 2022-02-01 02:30 | Emergency (ER) | payer OTHER, SELFPAY ==
[2022-02-01 02:35] VITALS: BP 166/111; PULSE 99; RESP 16; TEMP 36.9; O2SAT 98; BMI 38.5
--- NOTE | 2022-02-01 02:56 | ED.GENADULT ---
HPI - General Adult General Chief complaint: Urogenital-Female Stated complaint: uti Time Seen by Provider: 02/01/22 02:32 Source: patient Mode of arrival: Ambulatory History of Present Illness HPI narrative: Patient is a 31-year-old female. Is 20 weeks . Is breast-feeding. Is here for evaluation of several days of urinary burning, frequency, urgency. She has had urinary tract infections in the past but her last 1 was several years ago. Has not tried anything for current symptoms. No fevers. No vomiting. No back pain. No vaginal bleeding. Related Data Home Medications Medication Instructions Recorded Confirmed levothyroxine 25 mcg tablet 25 mcg PO DAILY tab 01/30/21 10/19/21 prenat.vits,nery,vww-axvq-xuavc 1 tab PO DAILY 03/07/21 10/19/21 Previous Rx's Medication Instructions Recorded clindamycin phosphate 1 % lotion 1 applic TOPICAL BID #60 ml 01/30/21 (Cleocin T) clotrimazole-betamethasone 1 1 applic TOPICAL BID 14 Days #15 g 09/21/21 %-0.05 % topical cream nitrofurantoin 100 mg PO Q12H 5 Days #10 cap 02/01/22 monohydrate/macrocrystals 100 mg capsule (Macrobid) Allergies Allergy/AdvReac Type Severity Reaction Status Date / Time No Known Drug Allergies Allergy Verified 02/01/22 02:38 Review of Systems Constitutional Constitutional: Reports as per HPI and Reports system reviewed and no additional complaints, except as documented Gastrointestinal Gastrointestinal: Reports as per HPI and Reports system reviewed and no additional complaints, except as documented Genitourinary Genitourinary: Reports system reviewed and no additional complaints, except as documented and Reports as per HPI Musculoskeletal Musculoskeletal: Reports system reviewed and no additional complaints, except as documented and Reports as per HPI Integumentary/Breasts Skin/Breast: Reports system reviewed and no additional complaints, except as documented Hematologic/Lymphatic On Anticoagulants: No Patient History Medical History Abnormal Pap smear of cervix (~05/2019) Acne rosacea (~2019) Borderline hypertension (~2018) Diabetes mellitus (~2018) History of being hospitalized (~12/2007) Hypothyroidism (~2018) Irregular menstrual cycle (~2015) Ovarian cyst (~2018) PCOS (polycystic ovarian syndrome) Pre-diabetes PTSD (post-traumatic stress disorder) SAB (spontaneous ) (~01/2005) Surgical History (Updated 09/21/21 @ 12:00 by Sue Sun MD) History of primary section (~04/16/07) Status post repeat low transverse section (~03/31/08) Status post repeat low transverse section (~08/07/13) Family History (Updated 03/07/21 @ 14:43 by Misty Velazquez RN) Father Hypertension Mental health problem Depression Suicidal thoughts Mother Diabetes mellitus Mental health problem Bipolar disorder Grandfather Hypertension Hyperlipidemia Grandmother Diabetes mellitus Mental health problem Bipolar disorder Grandfather History of heart disease Hypertension Grandmother Diabetes mellitus Family/Other Diabetes mellitus Social History marital status: number of children: 3 household members: spouse and children lives independently: Yes pets and animals: Yes (X 3 dogs and X 2 cats : aware) education level: college occupational status: employed current occupational exposures/hazards: No special tremaine needs: No Smoking Status: Never smoker Tobacco: How many years used: 3 quit status: has quit before second hand exposure: No alcohol intake: former substance use type: does not use, former substance user and marijuana Smoking Status: Never smoker Substance Use Type: does not use Exam Initial Vital Signs Initial Vital Signs: Vital Signs Temperature 98.4 F 02/01/22 02:35 Pulse Rate 99 H 02/01/22 02:35 Respiratory Rate 16 02/01/22 02:35 Blood Pressure 166/111 H 02/01/22 02:35 Pulse Oximetry 98 02/01/22 02:35 Const General: cooperative, healthy appearing, comfortable and well developed Resp Effort & Inspection: normal respiratory effort Cardio Rate: regular rate GI Inspection: non-distended Back/Spine/Pelvis Back: No CVA tenderness Neuro General: patient alert and patient awake Psych Appearance: grossly normal and well kempt Course Orders Ordered: ED Orders 02/01/22 02:37 Urine Culture Stat Urine Microscopic Stat Discontinued Medications Nitrofurantoin Macrocrystals (Nitrofurantoin Er 100 Mg Capsule) 100 mg PO NOW ONE Stop: 02/01/22 02:58 Last Admin: 02/01/22 03:05 Dose: 100 mg Documented by: EBONIE Vital Signs Vital signs: Vital Signs - 8 hr 02/01/22 02:35 02/01/22 03:07 Temperature 98.4 F Pulse Rate 99 H Respiratory Rate 16 Blood Pressure 166/111 H 140/93 H Pulse Oximetry 98 Medical Decision Making Lab Data Labs: Lab Results 02/01/22 Range/Units 02:37 Urine RBC 0-1/hpf (0-5/HPF) Urine WBC 30-100/hpf H (0-5/HPF) Ur Squamous Epith Cells 1-5 /hpf (0-5/HPF) Urine Bacteria Many (>30) H (None) Ur Culture Indicated? Specimen cultured Point of Care Testing Test Results Negative Urine Dip Bedside Urine Glucose Negative Bedside Urine Bilirubin - Negative Bedside Urine Ketone +/- 5 Urine Specific [place] 1.025 Bedside Urine Occult Blood +/- Bedside Urine pH 6.0 Bedside Urine Protein - Negative Bedside Urine Urobilinogen - Negative Bedside Urine Nitrite - Negative Bedside Urine Leukocytes ++ 125 Esterase Point of care testing: Point of Care Testing Test Results Negative Urine Dip Bedside Urine Glucose Negative Bedside Urine Bilirubin - Negative Bedside Urine Ketone +/- 5 Urine Specific [place] 1.025 Bedside Urine Occult Blood +/- Bedside Urine pH 6.0 Bedside Urine Protein - Negative Bedside Urine Urobilinogen - Negative Bedside Urine Nitrite - Negative Bedside Urine Leukocytes ++ 125 Esterase MDM Narrative Medical decision making narrative: Patient is not toxic appearing. Her history and physical urinalysis results are consistent with a urinary tract infection. Low suspicion for pyelo. Patient is so will start on Macrobid. Was given 1st dose here in the emergency department and a remainder of the course was transmitted to the pharmacy of her choice. Urine culture was also obtained will contact her we need to change any antibiotics. She was informed of this and expressed understanding. Patient's blood pressure also elevated. This did improve somewhat with time here in the ER. She is greater than 20 weeks . She did not have blood pressure issues during her . Considered preeclampsia but she is past the 20 weeks timeframe. She was instructed to contact her primary doctor for further workup of this. Discharge Plan Departure Patient Disposition: Home Clinical Impression: Urinary tract infection Instructions: DI for Urinary Tract Infection (UTI) Activity Restrictions/Additional Instructions: I do recommend that you take the antibiotics as directed. They were electronically transmitted to [email or web address]. Return to the emergency department for any new or worsening symptoms. Prescriptions: New nitrofurantoin monohyd/m-cryst [Macrobid] 100 mg capsule 100 mg PO Q12H 5 Days Qty: 10 0RF Rx Instructions: must administer with a meal/food No Action levothyroxine 25 mcg tablet 25 mcg PO DAILY 0RF clindamycin phosphate [Cleocin T] 1 % lotion 1 applic topical BID Qty: 60 1RF prenat.vits,nery,zbi-patw-rcfaj Tablet 1 tab PO DAILY 0RF clotrimazole-betamethasone 1-0.05 % cream 1 applic topical BID 14 Days Qty: 15 1RF Referrals: Mendel Urbina DO [Primary Care Provider] -
[2022-02-01 03:02] LABS: RBC Urine 0-1/HPF (0-5/HPF)
[2022-02-01 03:03] LABS: Bacteria Urine Many (>30); Culture Indicated Urine Specimen Cultured; Squamous Epithelial Cell Urine 1-5 /HPF (0-5/HPF); WBC Urine 30-100/HPF (0-5/HPF)
[2022-02-01] MEDS: NITROFURANTOIN ER 100 MG CAPSULE PO (03:05)
[2022-02-01 03:07] VITALS: BP 140/93
== END 2022-02-01 03:12 | disposition home or self-care (01) ==
PROVIDERS: Emergency Provider Emergency Medicine; PCP Family Medicine
DX: O86.20 Urinary tract infection following delivery, unspecified (principal); N39.0 Urinary tract infection, site not specified
CPT/HCPCS: 81003; 81015; 81025; 87077; 87086; 87186; 99283

== ENCOUNTER → 2022-08-22 14:23 | Outpatient (CLI) | payer SELFPAY | PROVIDERS: Referring Provider Internal Medicine; Visit Provider Internal Medicine | DX: Z23 Encounter for immunization (principal) | CPT/HCPCS: 90471; 90686 ==

== ENCOUNTER → 2023-01-26 10:11 | Outpatient (CLI) | payer OTHER, SELFPAY ==
[2023-01-26 11:19] LABS: Add Manual Diff / Slide Review NO; Basophils Absolute Auto 100 /uL (0-100); Basophils Percent Auto 0.8 % (0-2); Eosinophils Absolute Auto 100 /uL (0-450); Eosinophils Percent Auto 1.2 % (2-4); Hematocrit 42.6 % (36-46); Hemoglobin 14.5 g/dL (12.0-16.0); Lymphocytes Absolute Auto 1600 /uL (1100-4500); Lymphocytes Percent Auto 26.2 % (25-40); Mean Corpuscular HGB Conc 33.9 % (30-36); Mean Corpuscular Hemoglobin 29.6 PG (26-34); Mean Corpuscular Volume 87.1 fL (80-100); Monocytes Absolute Auto 400 /uL (0-900); Monocytes Percent Auto 6.8 % (3-14); Neutrophils Absolute Auto 4000 /uL (1500-7000); Platelet Count 366 X10^3/uL (150-400); Red Cell Distribution Width 13.8 % (11.6-14.8); White Blood Cell Count 6.1 X10^3/uL (4.5-11.0)
[2023-01-26 11:56] LABS: Alanine Aminotransferase 24 IU/L (<35); Albumin 3.9 g/dL (3.5-5.0); Albumin Globulin Ratio 1.5 (1.0-2.8); Alkaline Phosphatase 66 U/L (38-126); Aspartate Aminotransferase 23 IU/L (14-36); BUN Creatinine Ratio 25.4 (6-22); Bilirubin Total 0.6 mg/dL (0.2-1.3); Blood Urea Nitrogen 16 mg/dL (7-17); Calcium 8.9 mg/dL (8.4-10.2); Carbon Dioxide 24 mmol/L (22-32); Chloride 106 mmol/L (98-107); Estimated Glomerular Filt Rate > 60 mL/min (>60); Globulin 2.6 g/dL (1.7-4.1); Glucose 94 mg/dL (70-100); HEMOLYSIS < 15 (0-50); Potassium 4.7 mmol/L (3.4-5.1); Sodium 136 mmol/L (137-145); Total Protein 6.5 g/dL (6.3-8.2)
[2023-01-26 12:25] LABS: TSH w/ Reflex to FT4 1.71 uIU/mL (0.47-4.68)
[2023-01-27 09:26] LABS: Labcorp Hemoglobin (Hb) A1c 5.4 % (4.8-5.6)
== END ==
PROVIDERS: PCP Family Medicine; Referring Provider Family Medicine; Visit Provider Family Medicine
DX: E03.9 Hypothyroidism, unspecified (principal); R03.0 Elevated blood-pressure reading, without diagnosis of hypertension; E11.9 Type 2 diabetes mellitus without complications
CPT/HCPCS: 36415; 80053; 83036; 84443; 85025

== ENCOUNTER 2023-12-26 11:42 | Emergency (ER) | payer OTHER, SELFPAY ==
[2023-12-26 11:47] VITALS: BP 137/92; PULSE 133; RESP 16; TEMP 36.6; O2SAT 98; BMI 39.3
--- NOTE | 2023-12-26 12:11 | ED_ITS ---
HPI - General Adult General Chief complaint: Urogenital-Female Stated complaint: kidney infection Time Seen by Provider: 12/26/23 12:00 Source: patient Mode of arrival: Ambulatory History of Present Illness HPI narrative: 33-year-old female here for evaluation of left flank pain. States the symptoms started a couple days ago and have been progressively worsening since then. Is having nausea but no vomiting. Is having urinary frequency. She has had a kidney infection in the past and this feels similar to that. No skin rashes. Is also having diarrhea. No vaginal bleeding. Related Data Previous Rx's Medication Instructions Recorded Blood Glucose Monitor #1 ea 01/21/23 Blood Glucose Test Strips #180 ea 01/21/23 Lancets #180 ea 01/21/23 alcohol wipes #180 ea 01/21/23 bupropion HCl 150 mg 24 hr tablet, 150 mg PO DAILY #90 tabs 11/20/23 extended release (Wellbutrin XL) metformin 500 mg tablet,extended 1,000 mg (2 x 500 mg) PO DAILY #60 11/20/23 release 24 hr tabs spironolactone 25 mg tablet 25 mg PO DAILY #30 tabs 11/20/23 cephalexin 500 mg capsule 500 mg PO TID 10 days #30 caps 12/26/23 hydrocodone 5 mg-acetaminophen 325 1 tab PO Q4-6H PRN pain #10 tabs 12/26/23 mg tablet ondansetron 4 mg disintegrating 4 mg PO Q6H PRN nausea and 12/26/23 tablet vomiting #10 tabs Allergies Allergy/AdvReac Type Severity Reaction Status Date / Time No Known Drug Allergies Allergy Verified 12/26/23 11:50 Review of Systems Constitutional Constitutional: Reports system reviewed and no additional complaints, except as documented Gastrointestinal Gastrointestinal: Reports system reviewed and no additional complaints, except as documented Genitourinary Genitourinary: Reports system reviewed and no additional complaints, except as documented Musculoskeletal Musculoskeletal: Reports system reviewed and no additional complaints, except as documented Integumentary/Breasts Skin/Breast: Reports system reviewed and no additional complaints, except as documented Neurologic Neurologic: Reports system reviewed and no additional complaints, except as documented Patient History Medical History Mixed hyperlipidemia NELY (generalized anxiety disorder) Borderline hypothyroidism Migraine SAB (spontaneous ) (~01/2005) History of being hospitalized (~12/2007) Abnormal Pap smear of cervix (~05/2019) PTSD (post-traumatic stress disorder) Ovarian cyst (~2018) Irregular menstrual cycle (~2015) Hypothyroidism (~2018) Acne rosacea (~2019) PCOS (polycystic ovarian syndrome) Borderline hypertension (~2018) Pre-diabetes Diabetes mellitus (~2018) Surgical History (Updated 11/20/23 @ 14:10 by Gerhard Alaniz DO) Status post repeat low transverse section (~08/07/13) Status post repeat low transverse section (~03/31/08) History of primary section (~04/16/07) Family History Father Hypertension Mental health problem Depression Suicidal thoughts Mother Diabetes mellitus Mental health problem Bipolar disorder Grandfather Hypertension Hyperlipidemia Grandmother Diabetes mellitus Mental health problem Bipolar disorder Grandfather History of heart disease Hypertension Grandmother Diabetes mellitus Family/Other Diabetes mellitus Social History marital status: number of children: 3 household members: spouse and children lives independently: Yes pets and animals: Yes (X 3 dogs and X 2 cats : aware) education level: college occupational status: employed current occupational exposures/hazards: No special tremaine needs: No Smoking Status: Never smoker Tobacco: How many years used: 3 quit status: has quit before second hand exposure: No alcohol intake: former substance use type: does not use, former substance user and marijuana Smoking Status: Never smoker alcohol intake frequency: other Substance Use Type: does not use Exam Initial Vital Signs Initial Vital Signs: Vital Signs Temperature 98 F 12/26/23 11:47 Pulse Rate 133 H 12/26/23 11:47 Respiratory Rate 16 12/26/23 11:47 Blood Pressure 137/92 H 12/26/23 11:47 Pulse Oximetry 98 12/26/23 11:47 Oxygen Delivery Method Room Air 12/26/23 11:47 HENMT Head: normal to inspection and normocephalic Resp Effort & Inspection: normal respiratory effort Auscultation: clear to auscultation bilaterally Cardio Rate: regular rate Rhythm: regular rhythm GI Inspection: normal to inspection and non-distended Palpation: soft Back/Spine/Pelvis Back: CVA tenderness left Skin General: no rashes or lesions noted Extrem General: normal to inspection and capillary refill normal Course Orders Ordered: ED Orders 12/26/23 11:55 Ictotest Urine Stat Urine Microscopic Stat 12/26/23 12:26 Complete Blood Count AUTO DIFF Stat Comprehensive Metabolic Panel Stat Lipase Stat 12/26/23 14:48 CT kidney ureter bladder (KUB) Stat Discontinued Medications Cephalexin HCl (Cephalexin 250 Mg Capsule) 500 mg PO NOW ONE Stop: 12/26/23 13:08 Last Admin: 12/26/23 13:21 Dose: 500 mg Documented By: KEEGAN Hydromorphone HCl (Hydromorphone 1 Mg Inj) 1 mg IV NOW ONE Stop: 12/26/23 16:13 Last Admin: 12/26/23 16:18 Dose: 1 mg Documented By: HARSHA Sodium Chloride (Normal Saline 0.9%) 1,000 mls @ 1,000 mls/hr IV BOLUS ONE Stop: 12/26/23 13:06 Last Infusion: 12/26/23 14:08 Dose: Infused Documented By: Admin: 12/26/23 12:37 Dose: 1,000 mls/hr Documented By: JUAN Acetaminophen (Ofirmev) 1,000 mg in 100 mls @ 400 mls/hr IV NOW ONE Stop: 12/26/23 16:26 Last Infusion: 12/26/23 16:51 Dose: Infused Documented By: Admin: 12/26/23 16:18 Dose: 400 mls/hr Documented By: HARSHA Ketorolac Tromethamine (Ketorolac 30 Mg/Ml Vial) 30 mg IV NOW ONE Stop: 12/26/23 12:12 Last Admin: 12/26/23 12:37 Dose: 30 mg Documented By: JUAN Morphine Sulfate (Morphine 4 Mg/Ml Inj) 4 mg IV NOW ONE Stop: 12/26/23 14:02 Last Admin: 12/26/23 14:15 Dose: 4 mg Documented By: KEEGAN Ondansetron HCl (Ondansetron 4 Mg/2 Ml Inj) 4 mg IV NOW PRN PRN Reason: Nausea And Vomiting Last Admin: 12/26/23 14:15 Dose: 4 mg Documented By: KEEGAN Ondansetron HCl (Ondansetron 4 Mg Odt) 4 mg PO NOW PRN PRN Reason: Nausea And Vomiting Vital Signs Vital signs: Vital Signs - 8 hr 03/14/24 11:47 12/26/23 15:47 12/26/23 17:04 Temperature 98 F 99.2 F Pulse Rate 133 H 133 H 121 H Respiratory Rate 16 Blood Pressure 137/92 H 91/52 L 119/62 Pulse Oximetry 98 99 96 Oxygen Delivery Method Room Air Room Air Room Air Medical Decision Making Lab Data Lab results reviewed: Yes I reviewed the patient's lab results. 12/26/23 12:26 12/26/23 12:26 Labs: Lab Results 12/26/23 12/26/23 Range/Units 11:55 12:26 WBC 9.6 (4.5-11.0) X10^3/uL RBC 5.17 (4.0-5.2) X10^6/uL Hgb 14.2 (12.0-16.0) g/dL Hct 41.9 (36-46) % MCV 81.2 (80-100) fL MCH 27.4 (26-34) PG MCHC 33.8 (30-36) % RDW 13.9 (11.6-14.8) % Plt Count 404 H (150-400) X10^3/uL Neut % (Auto) 90.8 H (50-75) % Lymph % (Auto) 5.8 L (25-40) % Holt % (Auto) 3.0 (3-14) % Eos % (Auto) 0.1 L (2-4) % Baso % (Auto) 0.3 (0-2) % Neut # (Auto) 8700 H (0627-4072) /uL Lymph # (Auto) 600 L (2003-1647) /uL [place] # (Auto) 300 (0-900) /uL Eos # (Auto) 0 (0-450) /uL Baso # (Auto) 0 (0-100) /uL Sodium 138 (137-145) mmol/L Potassium 3.6 (3.4-5.1) mmol/L Chloride 106 (98-107) mmol/L Carbon Dioxide 23 (22-32) mmol/L BUN 15 (7-17) mg/dL Creatinine 0.70 (0.52-1.04) mg/dL Estimated GFR > 60 (>60) mL/min BUN/Creatinine Ratio 21.4 (6-22) Glucose 113 H (70-100) mg/dL Calcium 8.3 L (8.4-10.2) mg/dL Total Bilirubin 0.7 (0.2-1.3) mg/dL AST 26 (14-36) IU/L ALT 27 (<35) IU/L Alkaline Phosphatase 91 (38-126) U/L Total Protein 7.2 (6.3-8.2) g/dL Albumin 4.0 (3.5-5.0) g/dL Globulin 3.2 (1.7-4.1) g/dL Albumin/Globulin Ratio 1.3 (1.0-2.8) Lipase 119 (23-300) U/L Ur Bilirubin Confirm TNP Urine RBC 0-1/hpf (0-5/HPF) Urine WBC 1-5/hpf (0-5/HPF) Ur Squamous Epith Cells 10-30 /hpf H D (0-5/HPF) Urine Bacteria Many (>30) H (None) Ur Culture Indicated? Cult not indicated Vol Urine Centrifuged 10ml (spun) Point of Care Testing Test Results Negative Urine Dip Bedside Urine Glucose Negative Bedside Urine Bilirubin ++ 2 Bedside Urine Ketone +++ 80 Urine Specific [place] 1.030 Bedside Urine Occult Blood ++ Bedside Urine pH 5.5 Bedside Urine Protein +/- 15 Bedside Urine Urobilinogen - Negative Bedside Urine Nitrite - Negative Bedside Urine Leukocytes - Negative Esterase Point of care testing: Point of Care Testing Test Results Negative Urine Dip Bedside Urine Glucose Negative Bedside Urine Bilirubin ++ 2 Bedside Urine Ketone +++ 80 Urine Specific [place] 1.030 Bedside Urine Occult Blood ++ Bedside Urine pH 5.5 Bedside Urine Protein +/- 15 Bedside Urine Urobilinogen - Negative Bedside Urine Nitrite - Negative Bedside Urine Leukocytes - Negative Esterase Imaging Data CT scan - abdomen/pelvis: Radiologist's Impression: PROCEDURE: CT KIDNEY URETER BLADDER (KUB) INDICATIONS: L sided flank pain eval for stone TECHNIQUE: Axial sections were acquired from the lung bases to the pubic symphysis. Coronal and sagittal reformats were performed. For radiation dose reduction, the following was used: automated exposure control, adjustment of mA and/or kV according to patient size. COMPARISON: None. FINDINGS: Image quality: Diagnostic. Lower Chest: No significant findings. URINARY: Right Kidney: No stones or hydronephrosis. Right Ureter: No hydroureter. Left Kidney: No stones or hydronephrosis. Left Ureter: No hydroureter. Bladder: Normal wall thickness. No stones. ABDOMEN: Liver: No contour-deforming solid mass. Hepatic steatosis. Gallbladder: Gallbladder sludge versus small stones. No wall thickening or pericholecystic edema to suggest acute cholecystitis. Biliary ducts: No biliary dilation. Pancreas: No ductal dilation. Spleen: Size is within normal limits. Adrenal Glands: No adrenal nodules. Stomach and Bowel: Normal colonic caliber, without significant wall thickening. Appendectomy. No diverticular disease. Peritoneum: No abnormal intraperitoneal fluid. No free air. Ventral Wall: No hernia. Abdominal Nodes: No enlarged retroperitoneal or mesenteric lymph nodes. Vessels: Aorta and inferior vena cava are normal in size. 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 Pelvic Nodes: Unremarkable. Miscellaneous: No inguinal hernias are seen. Bones: Sacroiliitis. IMPRESSION: No obstructing stones or hydronephrosis. 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 If there is pelvic pain, consider pelvic ultrasound to exclude ovarian torsion in this setting. Bilateral sacroiliitis, which can be seen in the setting of other medical conditions, such as inflammatory bowel disease. MDM Narrative Medical decision making narrative: Patient is tachycardic in his remain tachycardic. Does not have a leukocytosis. Is afebrile. Not tachypneic. Urinalysis is consistent with a urinary tract infection. Urine culture is pending. CT scan does not show signs of kidney stone. Kidney functions unremarkable. Tolerating oral intake. She does have what appears to be a left-sided ovarian teratoma. She has not uncomfortable over this area. She has never been told this before. Has been told in the past that potentially she is PCOS. I do feel this is an incidental finding but I did tell the patient about this and advised that she follow-up with her primary doctor for further workup. Patient does have history and physical that is consistent with pyelonephritis. We discussed admission to the hospital given the discomfort that she was having and also her tachycardia versus discharged home. After discussion patient opted to be discharged home. I do not feel this is unreasonable she is tolerating oral intake. Medications were sent to the pharmacy of her choice. She was given strict return precautions. She expressed understanding and agreement with plan. Discharge Plan Departure Patient Disposition: Home Clinical Impression: Pyelonephritis, Teratoma Instructions: DI for Kidney Infection Activity Restrictions/Additional Instructions: It is important that you take the antibiotics as directed. You can also take Tylenol/ibuprofen for fevers. Be sure that your increasing your fluid intake. If your symptoms worsen or you develop vomiting despite the medications or worsening pain please return to the emergency department for further evaluation. There was also the incidental finding of what appears to be a teratoma of your left ovary. Please contact your primary care doctor for a follow-up. Prescriptions: New cephalexin 500 mg capsule 500 mg PO TID 10 Days Qty: 30 0RF ondansetron 4 mg tablet,disintegrating 4 mg PO Q6H PRN (Reason: nausea and vomiting) Qty: 10 0RF hydrocodone-acetaminophen 5-325 mg tablet 1 tab PO Q4-6H PRN (Reason: pain) Qty: 10 0RF No Action (DME) Blood Glucose Monitor See Rx Instructions .Route .MEDSUPPLY Qty: 1 0RF Rx Instructions: Use to test blood glucose twice daily, fasting in am and 2hrs post prandial daily (DME) Lancets See Rx Instructions .Route .MEDSUPPLY Qty: 180 3RF Rx Instructions: Use one lancet each time you check blood glucose, fasting each am and 2 hours post prandial one time daily (DME) Blood Glucose Test Strips See Rx Instructions .Route .MEDSUPPLY Qty: 180 3RF Rx Instructions: Use new test strip each time you check blood glucose, fasting in the am and 2hrs post prandial one time daily (DME) alcohol wipes See Rx Instructions .Route .MEDSUPPLY Qty: 180 3RF Rx Instructions: Use fresh alcohol wipe to test finger twice daily when checking blood glucose bupropion HCl [Wellbutrin XL] 150 mg tablet extended release 24 hr 150 mg PO DAILY Qty: 90 3RF metformin 500 mg tablet extended release 24 hr 1,000 mg PO DAILY Qty: 60 11RF spironolactone 25 mg tablet 25 mg PO DAILY Qty: 30 11RF Referrals: Gerhard Alaniz DO [Primary Care Provider] - Stand Alone Forms: Patient Portal/API
[2023-12-26 12:36] LABS: Add Manual Diff / Slide Review NO; Basophils Absolute Auto 0 /uL (0-100); Basophils Percent Auto 0.3 % (0-2); Eosinophils Absolute Auto 0 /uL (0-450); Eosinophils Percent Auto 0.1 % (2-4); Hematocrit 41.9 % (36-46); Hemoglobin 14.2 g/dL (12.0-16.0); Lymphocytes Absolute Auto 600 /uL (1100-4500); Lymphocytes Percent Auto 5.8 % (25-40); Mean Corpuscular HGB Conc 33.8 % (30-36); Mean Corpuscular Hemoglobin 27.4 PG (26-34); Mean Corpuscular Volume 81.2 fL (80-100); Monocytes Absolute Auto 300 /uL (0-900); Neutrophils Absolute Auto 8700 /uL (1500-7000); Neutrophils Percent Auto 90.8 % (50-75); Platelet Count 404 X10^3/uL (150-400); Red Blood Cell Count 5.17 X10^6/uL (4.0-5.2); Red Cell Distribution Width 13.9 % (11.6-14.8); White Blood Cell Count 9.6 X10^3/uL (4.5-11.0)
[2023-12-26 12:36] LABS: Bacteria Urine Many (>30); Culture Indicated Urine Cult Not Indicated; RBC Urine 0-1/HPF (0-5/HPF); Squamous Epithelial Cell Urine 10-30 /HPF (0-5/HPF); Urine Volume 10mL (spun); WBC Urine 1-5/HPF (0-5/HPF)
[2023-12-26] MEDS: KETOROLAC 30 MG/ML VIAL IV (12:37)
[2023-12-26] MEDS: SODIUM CHLORIDE 0.9% 1,000 ML 1000 ML IV (12:37)
[2023-12-26 12:48] LABS: Alanine Aminotransferase 27 IU/L (<35); Alkaline Phosphatase 91 U/L (38-126); Aspartate Aminotransferase 26 IU/L (14-36); BUN Creatinine Ratio 21.4 (6-22); Bilirubin Total 0.7 mg/dL (0.2-1.3); Blood Urea Nitrogen 15 mg/dL (7-17); Calcium 8.3 mg/dL (8.4-10.2); Carbon Dioxide 23 mmol/L (22-32); Chloride 106 mmol/L (98-107); Estimated Glomerular Filt Rate > 60 mL/min (>60); Glucose 113 mg/dL (70-100); HEMOLYSIS < 15 (0-50); Lipase 119 U/L (23-300); Potassium 3.6 mmol/L (3.4-5.1); Sodium 138 mmol/L (137-145); Total Protein 7.2 g/dL (6.3-8.2)
[2023-12-26] MEDS: cephALEXin 250 MG CAPSULE 500 MG PO (13:21)
[2023-12-26] MEDS: ONDANSETRON 4 MG/2 ML INJ IV (14:15)
[2023-12-26] MEDS: MORPHINE 4 MG/ML INJ IV (14:15)
[2023-12-26 14:16] LABS: Albumin Globulin Ratio 1.3 (1.0-2.8); Globulin 3.2 g/dL (1.7-4.1)
--- NOTE | 2023-12-26 14:48 | DI.CT.S_ITS ---
PROCEDURE: CT KIDNEY URETER BLADDER (KUB) INDICATIONS: L sided flank pain eval for stone TECHNIQUE: Axial sections were acquired from the lung bases to the pubic symphysis. Coronal and sagittal reformats were performed. For radiation dose reduction, the following was used: automated exposure control, adjustment of mA and/or kV according to patient size. COMPARISON: None. FINDINGS: Image quality: Diagnostic. Lower Chest: No significant findings. URINARY: Right Kidney: No stones or hydronephrosis. Right Ureter: No hydroureter. Left Kidney: No stones or hydronephrosis. Left Ureter: No hydroureter. Bladder: Normal wall thickness. No stones. ABDOMEN: Liver: No contour-deforming solid mass. Hepatic steatosis. Gallbladder: Gallbladder sludge versus small stones. No wall thickening or pericholecystic edema to suggest acute cholecystitis. Biliary ducts: No biliary dilation. Pancreas: No ductal dilation. Spleen: Size is within normal limits. Adrenal Glands: No adrenal nodules. Stomach and Bowel: Normal colonic caliber, without significant wall thickening. Appendectomy. No diverticular disease. Peritoneum: No abnormal intraperitoneal fluid. No free air. Ventral Wall: No hernia. Abdominal Nodes: No enlarged retroperitoneal or mesenteric lymph nodes. Vessels: Aorta and inferior vena cava are normal in size. 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 Pelvic Nodes: Unremarkable. Miscellaneous: No inguinal hernias are seen. Bones: Sacroiliitis. IMPRESSION: No obstructing stones or hydronephrosis. 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 If there is pelvic pain, consider pelvic ultrasound to exclude ovarian torsion in this setting. Bilateral sacroiliitis, which can be seen in the setting of other medical conditions, such as inflammatory bowel disease. Dictated by: Charbel Ovalles M.D. on 12/26/2023 at 15:43 Approved by: Charbel Ovalles M.D. on 12/26/2023 at 15:45
[2023-12-26 15:47] VITALS: BP 91/52; PULSE 133; TEMP 37.3; O2SAT 99
[2023-12-26] MEDS: ACETAMINOPHEN IV 1,000 MG/100 ML VIAL 400 MG IV (16:18)
[2023-12-26] MEDS: HYDROMORPHONE 1 MG INJ IV (16:18)
[2023-12-26 17:04] VITALS: BP 119/62; PULSE 121; O2SAT 96
== END 2023-12-26 17:04 | disposition home or self-care (01) ==
PROVIDERS: Emergency Provider Emergency Medicine; PCP Family Medicine
DX: N12 Tubulo-interstitial nephritis, not specified as acute or chronic (principal); D27.1 Benign neoplasm of left ovary; R00.0 Tachycardia, unspecified; R35.0 Frequency of micturition
CPT/HCPCS: 36415; 74176; 80053; 81003; 81015; 81025; 83690; 85025; 96361; 96365; 96375; 99284; J0136; J1170; J1885; J2270; J2405

== ENCOUNTER → 2024-01-14 10:07 | Outpatient (CLI) | payer OTHER, SELFPAY ==
--- NOTE | 2024-01-14 10:07 | DI.US.S_ITS ---
PROCEDURE: US PELVIC COMPLETE INDICATIONS: TERATOMA ON CT TECHNIQUE: Real-time scanning was performed of the pelvic organs, with image documentation. Additional endovaginal scanning was necessary due to incomplete visualization of the adnexal and endometrial structures by transabdominal scanning. COMPARISON: [facility], CT, CT KIDNEY URETER BLADDER (KUB), 12/26/2023, 14:58. FINDINGS: Uterus: Uterus is anteverted and normal in size at 9.4 x 5.5 x 6.9 cm. The myometrium is homogeneous. The endometrium measures 17.7 mm combined thickness. scar is noted with minimal fluid. Ovaries: The right ovary measures 2.1 x 2.3 x 3.7 cm, with a calculated ovarian volume of 9.3 cc. The left ovary is not visualized. There is a left adnexal mass measuring 3.5 x 2.4 x 3.2 centimeters with increased echogenicity and no vascularity. The right ovary has a normal sonographic appearance. Less than 12 follicles are seen within the right ovary. Other: No pathologic free abdominal or pelvic fluid. IMPRESSION: Echogenic left adnexal mass is redemonstrated measuring 3.7 centimeters, most consistent with teratoma as seen on prior CT. The endometrium is at the upper limits of normal measuring 17.7 millimeters. Recommend correlation with phase of menstrual cycle and any abnormal uterine bleeding. We strive to produce accurate, complete, and clear reports of imaging services. To assist us in improving patient care, this report was composed using standard report templates and voice recognition software. Therefore, it may contain abnormal punctuation, insertions and/or omissions. Occasional wrong-word or sound-alike substitutions may occur. Though we review the report and make efforts to correct it, we do recommend that the report be read carefully in proper context to recognize any text inaccuracies. Dictated by: Haroldo Guillen M.D. on 01/14/2024 at 11:29 Approved by: Haroldo Guillen M.D. on 01/14/2024 at 11:32
== END ==
LOC: US 10:07
PROVIDERS: PCP Family Medicine; Referring Provider Family Medicine; Visit Provider Family Medicine
DX: D48.9 Neoplasm of uncertain behavior, unspecified (principal)
CPT/HCPCS: 76830; 76856

== ENCOUNTER 2024-09-05 13:12 | Emergency (ER) | payer OTHER, SELFPAY ==
[2024-09-05 13:15] VITALS: BP 161/98; PULSE 103; RESP 17; TEMP 37.1; O2SAT 98; BMI 38.4
--- NOTE | 2024-09-05 14:53 | ED_ITS ---
<Statement entered by Oscar Lugo DO - 09/05/24 17:48> Dr. Lugo: I was immediately available in the department for consultation. Documentation has been reviewed. I agree with assessment and plan. HPI - Headache General Chief Complaint: Headache Stated Complaint: Severe Migraine Time Seen by Provider: 09/05/24 14:16 Mode of arrival: Ambulatory History of Present Illness HPI Narrative: Ms. Rapp is a pleasant 33-year-old female with a past medical history of migraine headaches, depression, anxiety, prediabetes, hypertension who presents to the emergency department for headache since 11:00 p.m. last night. Patient states she was having sex with her when the headache started. Describes frontal ?popping? pain. States that she tried to sleep off the headache. Headache is progressively getting worse in the maximum intensity of the headache is now. She took 1 Excedrin migraine earlier today without relief of the headache. Reports that she does have a history of migraine headaches but typically they started with an aura. States this headache is more painful than her normal migraine and is not associated with any aura. Reports photophobia, lightheaded, and nauseous. No changes in her vision. No weakness. Denies neck pain, back pain, chest pain, fever, chills, recent travel, vomiting. States she only ate a banana today because of the pain. Related Data Previous Rx's Medication Instructions Recorded Blood Glucose Monitor #1 ea 01/21/23 Blood Glucose Test Strips #180 ea 01/21/23 Lancets #180 ea 01/21/23 alcohol wipes #180 ea 01/21/23 bupropion HCl 150 mg 24 hr tablet, 150 mg PO DAILY #90 tabs 11/20/23 extended release (Wellbutrin XL) metformin 500 mg tablet,extended 1,000 mg (2 x 500 mg) PO DAILY #60 11/20/23 release 24 hr tabs spironolactone 25 mg tablet 25 mg PO DAILY #30 tabs 11/20/23 Allergies Allergy/AdvReac Type Severity Reaction Status Date / Time No Known Drug Allergies Allergy Verified 01/21/24 09:40 Review of Systems Review of Systems ROS Unobtainable: All systems reviewed & are unremarkable except as noted in HPI and below Patient History Medical History Teratoma of right ovary Mixed hyperlipidemia NELY (generalized anxiety disorder) Borderline hypothyroidism Migraine SAB (spontaneous ) (~01/2005) History of being hospitalized (~12/2007) Abnormal Pap smear of cervix (~05/2019) PTSD (post-traumatic stress disorder) Ovarian cyst (~2018) Irregular menstrual cycle (~2015) Hypothyroidism (~2018) Acne rosacea (~2019) PCOS (polycystic ovarian syndrome) Borderline hypertension (~2018) Pre-diabetes Diabetes mellitus (~2018) Surgical History Status post repeat low transverse section (~08/07/13) Status post repeat low transverse section (~03/31/08) History of primary section (~04/16/07) Family History Father Hypertension Mental health problem Depression Suicidal thoughts Mother Diabetes mellitus Mental health problem Bipolar disorder Grandfather Hypertension Hyperlipidemia Grandmother Diabetes mellitus Mental health problem Bipolar disorder Grandfather History of heart disease Hypertension Grandmother Diabetes mellitus Family/Other Diabetes mellitus Social History marital status: number of children: 3 household members: spouse and children lives independently: Yes pets and animals: Yes (X 3 dogs and X 2 cats : aware) education level: college occupational status: employed current occupational exposures/hazards: No special tremaine needs: No Smoking Status: Never smoker Tobacco: How many years used: 3 quit status: has quit before second hand exposure: No alcohol intake: former substance use type: does not use, former substance user and marijuana Smoking Status: Never smoker alcohol intake frequency: other Substance Use Type: does not use Exam Narrative Exam Narrative: GENERAL: 33 year old patient appears stated age. Obese pt, in mild distress. HEAD: Atraumatic. Normocephalic. EYES: PERRL. Extraocular motions intact. No scleral icterus. No injection or drainage. ENT: No hemotympanum. Nose without bleeding, purulent drainage. Throat without erythema, tonsillar hypertrophy or exudate. Airway patent. NECK: Trachea midline. Cervical ROM intact. Negative meningeal signs. CARDIOVASCULAR: Regular rate and rhythm. RESPIRATORY: ?Nonlabored respirations. ?Speaking in clear, full sentences. ?Clear to auscultation. Breath sounds equal bilaterally. No wheezes, rales, or rhonchi. ? GASTROINTESTINAL: Abdomen soft, non-tender, nondistended. EXTREMITIES: No edema or joint tenderness. BACK: Nontender without deformity or crepitance. No flank tenderness. NEURO: AOx3. ?Clear speech. ?Moves all 4 extremities appropriately. No facial asymmetry. Sensation intact to light touch on the face and throughout the body. Negative meningeal signs. Pupils equal, round, reactive to light appropriately. SKIN: No rash or erythema of visible areas Initial Vital Signs Initial Vital Signs: Vital Signs Temperature 98.8 F 09/05/24 13:15 Pulse Rate 103 H 09/05/24 13:15 Respiratory Rate 17 09/05/24 13:15 Blood Pressure 161/98 H 09/05/24 13:15 Pulse Oximetry 98 09/05/24 13:15 Oxygen Delivery Method Room Air 09/05/24 13:15 Course Orders Ordered: ED Orders 09/05/24 14:50 Complete Blood Count AUTO DIFF Stat Comprehensive Metabolic Panel Stat PTT Partial Thromboplastin Abimael Stat Prothrombin Time INR Stat 09/05/24 15:03 CT head/brain wo con Stat Discontinued Medications Dexamethasone (Dexamethasone 10 Mg/Ml Vial) 10 mg IV NOW ONE Stop: 09/05/24 15:01 Last Admin: 09/05/24 15:22 Dose: 10 mg Documented By: YAIR Diphenhydramine HCl (Diphenhydramine 50 Mg/Ml Vial) 25 mg IV NOW ONE Stop: 09/05/24 15:01 Last Admin: 09/05/24 15:21 Dose: 25 mg Documented By: YAIR Sodium Chloride (Normal Saline 0.9%) 1,000 mls @ 1,000 mls/hr IV BOLUS ONE Stop: 09/05/24 15:59 Last Infusion: 09/05/24 16:34 Dose: Infused Documented By: Admin: 09/05/24 15:21 Dose: 1,000 mls/hr Documented By: YAIR Prochlorperazine (Prochlorperazine 10 Mg/2 Ml Vial) 10 mg IV NOW ONE Stop: 09/05/24 15:01 Last Admin: 09/05/24 15:21 Dose: 10 mg Documented By: YAIR Vital Signs Vital signs: Vital Signs - 8 hr 09/05/24 13:15 Temperature 98.8 F Pulse Rate 103 H Respiratory Rate 17 Blood Pressure 161/98 H Pulse Oximetry 98 Oxygen Delivery Method Room Air MDM - Headache Lab Data 09/05/24 14:50 09/05/24 14:50 Labs: Lab Results 09/05/24 Range/Units 14:50 WBC 10.1 (4.5-11.0) X10^3/uL RBC 4.90 (4.0-5.2) X10^6/uL Hgb 12.1 (12.0-16.0) g/dL Hct 37.6 (36-46) % MCV 76.6 L (80-100) fL MCH 24.7 L (26-34) PG MCHC 32.3 (30-36) % RDW 16.8 H (11.6-14.8) % Plt Count 490 H (150-400) X10^3/uL Neut % (Auto) 78.1 H (50-75) % Lymph % (Auto) 14.1 L (25-40) % [place] % (Auto) 6.6 (3-14) % Eos % (Auto) 0.3 L (2-4) % Baso % (Auto) 0.9 (0-2) % Neut # (Auto) 7900 H (7575-0232) /uL Lymph # (Auto) 1400 (0859-2604) /uL [place] # (Auto) 700 (0-900) /uL Eos # (Auto) 0 (0-450) /uL Baso # (Auto) 100 (0-100) /uL PT 11.7 (9.4-12.5) SECONDS INR 1.0 (0.9-1.3) APTT 34 (25.1-36.5) SECONDS Sodium 139 (137-145) mmol/L Potassium 4.2 (3.4-5.1) mmol/L Chloride 109 H (98-107) mmol/L Carbon Dioxide 22 (22-32) mmol/L BUN 12 (7-17) mg/dL Creatinine 0.66 (0.52-1.04) mg/dL Estimated GFR > 60 (>60) mL/min BUN/Creatinine Ratio 18.2 (6-22) Glucose 91 (70-100) mg/dL Calcium 8.7 (8.4-10.2) mg/dL Total Bilirubin 0.5 (0.2-1.3) mg/dL AST 31 (14-36) IU/L ALT 25 (<35) IU/L Alkaline Phosphatase 80 (38-126) U/L Total Protein 7.1 (6.3-8.2) g/dL Albumin 4.2 (3.5-5.0) g/dL Globulin 2.9 (1.7-4.1) g/dL Albumin/Globulin Ratio 1.4 (1.0-2.8) Imaging Data CT scan - head: Radiologist's Impression: PROCEDURE: CT HEAD/BRAIN WO CON INDICATIONS: severe frontal headache TECHNIQUE: Noncontrast 4.5 mm thick angled axial sections acquired from the foramen magnum to the vertex, with coronal and sagittal reformats. For radiation dose reduction, the following was used: automated exposure control, adjustment of mA and/or kV according to patient size. COMPARISON: None. FINDINGS: Image quality: Diagnostic. CSF spaces: Basal cisterns are patent. No extra-axial fluid collections. Ventricles are normal in size and shape. Brain: No midline shift. No intracranial masses or hemorrhage. Castillo-white matter interface is normal. Skull and face: Calvarium and visualized facial bones are intact, without suspicious lesions. Sinuses: Visualized sinuses and mastoids are clear. IMPRESSION: Unremarkable intracranial study, without an imaging explanation found for the patient's presenting history of headache. No acute intracranial hemorrhage is seen. To the limits of this noncontrast study, no findings of intracranial masses or mass effect can be seen. [facility] Narrative Medical decision making narrative: 33-year-old female presents to the emergency department for a headache since 11:00 p.m. last night. She does have a history of migraine headaches, but this is not quite the same. Differential diagnosis includes but is not limited to migraine headache, tension headache, sinusitis, intracerebral hemorrhage, etc.. On exam patient is in mild distress but not toxic appearing. Negative meningeal signs and no focal neurologic deficits. She is here with her who contributes to the history as well. Maximum intensity of the headache has been gradually progressing, maximum intensity was not at onset. We will obtain basic labs, CT head without IV contrast, and treat with Decadron, Compazine, fluids, Benadryl. Offered patient CT angiogram of head and neck however her headache resolved completely with headache cocktail and she does not want any further imaging. CT is negative for any acute abnormalities. Suspect patient's symptoms may have been due to migraine, I recommended she take Tylenol and ibuprofen if needed for pain at home and also follow up with PCP and may refer her to Neurology for her chronic migraines. We discussed very strict ER return precautions. Patient is stable for discharge. Patient is ambulatory and lives ER with her . Discharge Plan Departure Patient Disposition: Home Clinical Impression: Acute headache Qualifiers: Headache type: unspecified Intractability: not intractable Qualified Code(s): R 51.9 - Headache, unspecified Instructions: DI for Headache Activity Restrictions/Additional Instructions: Please take Ibuprofen (Motrin/Advil) or Acetaminophen (Tylenol) for pain. These are available over the counter. You may take Ibuprofen 600 mg every 8 hours with food for pain. You may also take Acetaminophen 650 mg every 4-6 hours for pain. Do not exceed 3000 mg of Tylenol a day as this can cause liver damage. Do not drink alcohol with either of these medications. For acute pain, you can take 600 mg of ibuprofen and 1000 mg of Tylenol together at the same time. Please rest, increase hydration, and decreased visual strain such as TV/screens. Good luck with your test on Saturday! Please follow up with your primary care doctor within the next 2-3 days for ER follow-up. (If you do not have a PCP you can call [phone]. ?to schedule an appointment with an [facility] Primary Care Provider) IF YOU DEVELOP ANY NEW OR WORSENING SYMPTOMS, RETURN TO THE ER! Please read the attached instructions, they highlight more specific treatments and interventions for you at home. Thank you for letting me participate in your care, Gianna Vuong PA-C Prescriptions: No Action (DME) Blood Glucose Monitor See Rx Instructions .Route .MEDSUPPLY Qty: 1 0RF Rx Instructions: Use to test blood glucose twice daily, fasting in am and 2hrs post prandial daily (DME) Lancets See Rx Instructions .Route .MEDSUPPLY Qty: 180 3RF Rx Instructions: Use one lancet each time you check blood glucose, fasting each am and 2 hours post prandial one time daily (DME) Blood Glucose Test Strips See Rx Instructions .Route .MEDSUPPLY Qty: 180 3RF Rx Instructions: Use new test strip each time you check blood glucose, fasting in the am and 2hrs post prandial one time daily (DME) alcohol wipes See Rx Instructions .Route .MEDSUPPLY Qty: 180 3RF Rx Instructions: Use fresh alcohol wipe to test finger twice daily when checking blood glucose bupropion HCl [Wellbutrin XL] 150 mg tablet extended release 24 hr 150 mg PO DAILY Qty: 90 3RF metformin 500 mg tablet extended release 24 hr 1,000 mg PO DAILY Qty: 60 11RF spironolactone 25 mg tablet 25 mg PO DAILY Qty: 30 11RF Referrals: Gerhard Alaniz DO [Primary Care Provider] - Stand Alone Forms: Patient Portal/API/Survey
--- NOTE | 2024-09-05 15:03 | DI.CT.S_ITS ---
PROCEDURE: CT HEAD/BRAIN WO CON INDICATIONS: severe frontal headache TECHNIQUE: Noncontrast 4.5 mm thick angled axial sections acquired from the foramen magnum to the vertex, with coronal and sagittal reformats. For radiation dose reduction, the following was used: automated exposure control, adjustment of mA and/or kV according to patient size. COMPARISON: None. FINDINGS: Image quality: Diagnostic. CSF spaces: Basal cisterns are patent. No extra-axial fluid collections. Ventricles are normal in size and shape. Brain: No midline shift. No intracranial masses or hemorrhage. Castillo-white matter interface is normal. Skull and face: Calvarium and visualized facial bones are intact, without suspicious lesions. Sinuses: Visualized sinuses and mastoids are clear. IMPRESSION: Unremarkable intracranial study, without an imaging explanation found for the patient's presenting history of headache. No acute intracranial hemorrhage is seen. To the limits of this noncontrast study, no findings of intracranial masses or mass effect can be seen. Dictated by: Jaun Cagle M.D. on 09/05/2024 at 14:25 Approved by: Jaun Cagle M.D. on 09/05/2024 at 14:26
[2024-09-05 15:11] LABS: Prothrombin Time 11.7 SECONDS (9.4-12.5)
[2024-09-05 15:12] LABS: Add Manual Diff / Slide Review NO; Basophils Absolute Auto 100 /uL (0-100); Basophils Percent Auto 0.9 % (0-2); Eosinophils Absolute Auto 0 /uL (0-450); Eosinophils Percent Auto 0.3 % (2-4); Hematocrit 37.6 % (36-46); Hemoglobin 12.1 g/dL (12.0-16.0); Lymphocytes Absolute Auto 1400 /uL (1100-4500); Lymphocytes Percent Auto 14.1 % (25-40); Mean Corpuscular HGB Conc 32.3 % (30-36); Mean Corpuscular Hemoglobin 24.7 PG (26-34); Mean Corpuscular Volume 76.6 fL (80-100); Monocytes Absolute Auto 700 /uL (0-900); Monocytes Percent Auto 6.6 % (3-14); Neutrophils Absolute Auto 7900 /uL (1500-7000); Neutrophils Percent Auto 78.1 % (50-75); Platelet Count 490 X10^3/uL (150-400); Red Cell Distribution Width 16.8 % (11.6-14.8); White Blood Cell Count 10.1 X10^3/uL (4.5-11.0)
[2024-09-05 15:14] LABS: PTT Partial Thromboplastin Tim 34 SECONDS (25.1-36.5)
[2024-09-05 15:15] LABS: Alanine Aminotransferase 25 IU/L (<35); Albumin 4.2 g/dL (3.5-5.0); Albumin Globulin Ratio 1.4 (1.0-2.8); Alkaline Phosphatase 80 U/L (38-126); Aspartate Aminotransferase 31 IU/L (14-36); BUN Creatinine Ratio 18.2 (6-22); Bilirubin Total 0.5 mg/dL (0.2-1.3); Blood Urea Nitrogen 12 mg/dL (7-17); Calcium 8.7 mg/dL (8.4-10.2); Carbon Dioxide 22 mmol/L (22-32); Chloride 109 mmol/L (98-107); Estimated Glomerular Filt Rate > 60 mL/min (>60); Globulin 2.9 g/dL (1.7-4.1); Glucose 91 mg/dL (70-100); HEMOLYSIS < 15 (0-50); Potassium 4.2 mmol/L (3.4-5.1); Sodium 139 mmol/L (137-145); Total Protein 7.1 g/dL (6.3-8.2)
[2024-09-05] MEDS: PROCHLORPERAZINE 10 MG/2 ML VIAL IV (15:21)
[2024-09-05] MEDS: diphenhydrAMINE 50 MG/ML VIAL 25 MG IV (15:21)
[2024-09-05] MEDS: SODIUM CHLORIDE 0.9% 1,000 ML 1000 ML IV (15:21)
[2024-09-05] MEDS: DEXAMETHASONE 10 MG/ML VIAL IV (15:22)
[2024-09-05 16:48] VITALS: BP 134/90; PULSE 79; RESP 19; O2SAT 95
== END 2024-09-05 16:49 | disposition home or self-care (01) ==
PROVIDERS: Emergency Provider Physician Assistant; PCP Family Medicine
DX: R51.9 Headache, unspecified (principal); Z86.69 Personal history of other diseases of the nervous system and sense organs
CPT/HCPCS: 36415; 70450; 80053; 85025; 85610; 85730; 96361; 96374; 96375; 99284; J0780; J1100; J1200

== ENCOUNTER → 2025-07-15 09:23 | Outpatient (CLI) | payer OTHER, SELFPAY ==
[2025-07-15 10:35] LABS: Hematocrit 35.6 % (36-46); Hemoglobin 11.2 g/dL (12.0-16.0); Mean Corpuscular HGB Conc 31.5 % (30-36); Mean Corpuscular Hemoglobin 22.1 PG (26-34); Mean Corpuscular Volume 70.3 fL (80-100); Platelet Count 499 X10^3/uL (150-400)
[2025-07-15 11:13] LABS: Alanine Aminotransferase 21 IU/L (<35); Albumin 4.1 g/dL (3.5-5.0); Albumin Globulin Ratio 1.6 (1.0-2.8); Alkaline Phosphatase 89 U/L (38-126); Blood Urea Nitrogen 14 mg/dL (7-17); Calcium 9.0 mg/dL (8.4-10.2); Carbon Dioxide 25 mmol/L (22-32); Chloride 106 mmol/L (98-107); Cholesterol 145 mg/dL (140-199); Estimated Glomerular Filt Rate > 60 mL/min (>60); Globulin 2.6 g/dL (1.7-4.1); Glucose 104 mg/dL (70-99); HDL Cholesterol 40 mg/dL (40-60); HEMOLYSIS < 15 (0-50); Hemoglobin A1C% w Est Avg Glu 5.6 % (4.0-6.0); Potassium 4.8 mmol/L (3.4-5.1); Sodium 138 mmol/L (137-145); Total Protein 6.7 g/dL (6.3-8.2); Triglycerides 66 mg/dL (35-150)
[2025-07-19 09:39] LABS: Human Epididymis Prot 4 50.1 pmol/L (0.0-61.2)
== END ==
PROVIDERS: Obstetrics & Gynecology; PCP Family Medicine; Referring Provider Family Medicine; Visit Provider Family Medicine
DX: E78.2 Mixed hyperlipidemia (principal); R73.03 Prediabetes; E28.2 Polycystic ovarian syndrome; D27.0 Benign neoplasm of right ovary
CPT/HCPCS: 80053; 80061; 83036; 85027; 86304; 86305

== ENCOUNTER → 2025-07-20 13:25 | Outpatient (CLI) | payer OTHER, SELFPAY ==
[2025-07-20 15:00] LABS: HEMOLYSIS < 15 (0-50)
[2025-07-20 15:37] LABS: Ferritin 5 ng/mL (6-137); TSH w/ Reflex to FT4 1.27 uIU/mL (0.47-4.68)
[2025-07-20 15:38] LABS: Iron 31 ug/dL (37-170)
[2025-07-20 15:52] LABS: Percent Iron Saturation 6 % (15-50); Total Iron Binding Capacity 506 ug/dL (265-497); Transferrin 404 mg/dL (206-381)
== END ==
PROVIDERS: PCP Family Medicine; Referring Provider Family Medicine; Visit Provider Family Medicine
DX: R71.8 Other abnormality of red blood cells (principal); N92.0 Excessive and frequent menstruation with regular cycle
CPT/HCPCS: 36415; 82728; 83540; 83550; 84443

== ENCOUNTER → 2025-08-23 15:25 | Outpatient (CLI) | payer OTHER, SELFPAY ==
--- NOTE | 2025-08-23 15:26 | DI.US.S_ITS ---
PROCEDURE: US PELVIC COMPLETE
== END ==
LOC: US 15:25
PROVIDERS: PCP Family Medicine; Referring Provider Obstetrics & Gynecology; Visit Provider Obstetrics & Gynecology
DX: N92.0 Excessive and frequent menstruation with regular cycle (principal); N83.8 Other noninflammatory disorders of ovary, fallopian tube and broad ligament; N83.201 Unspecified ovarian cyst, right side
CPT/HCPCS: 76830; 76856